=== PATIENT | male | born 1990 | race Caucasian/White ===

== ENCOUNTER 2020-01-08 09:12 | Outpatient (REF) | payer OTHER, SELFPAY ==
[2020-01-08 11:25] LABS: Alanine Aminotransferase 48 U/L (0-40); Albumin Level 4.6 g/dL (3.5-5.0); Alkaline Phosphatase 49 U/L (39-117); Anion Gap 11 (12-20); Aspartate Amino Transferase 25 U/L (5-37); Bilirubin Total 1.5 mg/dL (0.0-1.0); Blood Urea Nitrogen 12 mg/dL (9-16); Calcium 9.4 mg/dL (8.4-10.2); Carbon Dioxide 29 mmol/L (22-29); Chloride 101 mmol/L (96-108); Cholesterol 243 mg/dL; Estimated Glomerular Filt Rate > 60; Glucose Random 97 mg/dL (60-115); HDL Cholesterol 37 mg/dL; Potassium 4.3 mmol/l (3.3-5.1); Sodium 137 mmol/L (135-145); Total Protein 7.1 g/dL (6.5-8.0); Triglycerides 461 mg/dL
[2020-01-08 13:49] LABS: Microalbumin Urine < 5.0 mg/L
== END 2020-01-08 09:13 | disposition home or self-care (01) ==
LOC: HO.WFDLDS 09:12
PROVIDERS: Visit Provider Family Medicine
DX: Z00.00 Encounter for general adult medical examination without abnormal findings (principal); R74.01 Elevation of levels of liver transaminase levels; E78.2 Mixed hyperlipidemia; I10 Essential (primary) hypertension
CPT/HCPCS: 80053; 80061; 82043

== ENCOUNTER 2020-07-22 10:35 | Outpatient (REF) | payer OTHER, SELFPAY ==
[2020-07-22 14:11] LABS: Alanine Aminotransferase 50 U/L (0-40); Albumin Level 4.8 g/dL (3.5-5.0); Alkaline Phosphatase 55 U/L (39-117); Anion Gap 13 (12-20); Aspartate Amino Transferase 25 U/L (5-37); Bilirubin Total 1.6 mg/dL (0.0-1.0); Blood Urea Nitrogen 14 mg/dL (9-16); Calcium 9.8 mg/dL (8.4-10.2); Carbon Dioxide 29 mmol/L (22-29); Chloride 104 mmol/L (96-108); Estimated Glomerular Filt Rate > 60; Glucose Random 84 mg/dL (60-115); Potassium 4.6 mmol/L (3.3-5.1); Sodium 141 mmol/L (135-145); Total Protein 7.5 g/dL (6.5-8.0)
== END 2020-07-22 10:36 | disposition home or self-care (01) ==
LOC: HO.WFDLDS 10:35
PROVIDERS: Visit Provider Family Medicine
DX: I10 Essential (primary) hypertension (principal); R74.01 Elevation of levels of liver transaminase levels
CPT/HCPCS: 36415; 80053

== ENCOUNTER 2020-10-01 09:39 | Outpatient (REF) | payer OTHER, SELFPAY ==
--- NOTE | ~2020-10-01 | XR_ITS ---
EXAMINATION: XR ELBOW, LEFT CLINICAL INFORMATION: Left elbow pain. COMPARISON: None. TECHNIQUE: AP, lateral, and oblique views of the left elbow. FINDINGS: No acute fracture or dislocation. No joint space narrowing or marginal osteophytes. No osseous erosion. No abnormal soft tissue calcification. No significant joint effusion. Prominent soft tissue slight dorsal to the olecranon, which could indicate a soft tissue hematoma in the setting of trauma versus olecranon bursitis. XR/XR elbow LT 2V IMPRESSION: Soft tissue swelling overlying the olecranon, which could represent a soft tissue hematoma in the setting of prior trauma versus olecranon bursitis.
== END 2020-10-01 09:40 | disposition home or self-care (01) ==
LOC: HO.HMGCX 09:39
PROVIDERS: PCP Family Medicine; Visit Provider Family Medicine
DX: M25.522 Pain in left elbow (principal)
CPT/HCPCS: 73070

== ENCOUNTER 2022-03-17 08:27 | Outpatient (REF) | payer OTHER, SELFPAY ==
[2022-03-17 11:49] LABS: Influenza A PCR NEGATIVE (Negative); Influenza B PCR NEGATIVE (Negative); Resp Syncy Virus RNA Qual PCR NEGATIVE (Negative); SARS COV2 PCR INHOUSE NEGATIVE (Negative)
== END 2022-03-17 08:28 | disposition home or self-care (01) ==
LOC: HO.LAB 08:27
PROVIDERS: Visit Provider Family Medicine
DX: Z20.822 Contact with and (suspected) exposure to COVID-19 (principal)
CPT/HCPCS: 0241U

== ENCOUNTER 2022-03-31 08:48 | Outpatient (REF) | payer OTHER, SELFPAY ==
[2022-03-31 11:27] LABS: Appearance Urine Clear; Color Urine Yellow; Glucose Urine UA Negative (Negative); Leukocyte Esterase Urine Negative (Negative); Nitrite Urine Negative (Negative); Urine Blood Negative (Negative); Urine Ketones Negative (Negative); Urine Protein Negative (Neg-Trace)
[2022-03-31 12:15] LABS: Alanine Aminotransferase 72 U/L (0-40); Albumin Level 4.7 g/dL (3.5-5.0); Alkaline Phosphatase 64 U/L (39-117); Anion Gap 11 (12-20); Aspartate Amino Transferase 33 U/L (5-37); Bilirubin Total 1.9 mg/dL (0.0-1.0); Blood Urea Nitrogen 15 mg/dL (9-16); Calcium 9.8 mg/dL (8.4-10.2); Carbon Dioxide 29 mmol/L (22-29); Chloride 103 mmol/L (96-108); Cholesterol 233 mg/dL; Estimated Glomerular Filt Rate > 60; Glucose Fasting 94 mg/dL (60-99); HDL Cholesterol 35 mg/dL; LDL Cholesterol Calculated 140 mg/dl; Potassium 3.8 mmol/L (3.3-5.1); Sodium 139 mmol/L (135-145); Total Protein 7.5 g/dL (6.5-8.0); Triglycerides 291 mg/dL
[2022-03-31 12:23] LABS: TSH reflex Free T4 1.13 uIU/mL (0.32-4.0)
[2022-03-31 12:26] LABS: Creatinine Urine 131.18 mg/dL; Microalbum/Creatinine Ratio Ur 5.3 ug/mg cr
== END 2022-03-31 08:49 | disposition home or self-care (01) ==
LOC: HO.WFDLDS 08:48
PROVIDERS: Visit Provider Family Medicine
DX: Z00.00 Encounter for general adult medical examination without abnormal findings (principal); I10 Essential (primary) hypertension
CPT/HCPCS: 36415; 80053; 80061; 81003; 82043; 84443

== ENCOUNTER 2022-05-06 08:24 | Outpatient (REF) | payer OTHER, SELFPAY | END 2022-05-06 08:25 | disposition home or self-care (01) | LOC: HO.US 08:24 | PROVIDERS: Visit Provider Family Medicine | DX: Z13.89 Encounter for screening for other disorder (principal) ==

== ENCOUNTER 2022-05-09 07:54 | Outpatient (REF) | payer OTHER, SELFPAY ==
--- NOTE | ~2022-05-09 | US_ITS ---
EXAMINATION: US ABDOMEN LIMITED WITH LIVER ELASTOGRAPHY CLINICAL INFORMATION: Elevated transaminase levels. COMPARISON: None. TECHNIQUE: Real-time imaging of the abdominal viscera. Noninvasive ultrasound liver fibrosis assessment is performed using Ambika ElastPQ point quantification shear wave elastography (2D-SWE) with a C5-2 MHz transducer. Multiple elastography samples are obtained. FINDINGS: PANCREAS: Limited. The visualized pancreatic head and body are normal in appearance. The remainder of the pancreas is obscured from visualization by the overlying bowel gas. LIVER: The liver demonstrates normal size, contour and increased echogenicity, with pericholecystic sparing. No focal lesion or intrahepatic biliary duct dilatation. The right lobe measures 16.3 cm in length. The left lobe measures 11.9 cm in length. Portal flow is towards the liver (hepatopetal). Shear wave liver elastography median stiffness is 1.53 m/s (reference: normal median stiffness is 1.3 m/s or less). IQR/median stiffness to assess sampling precision is 0.12 (reference: good quality data set is IQR/median stiffness of 0.15 or less). GALLBLADDER: A 3 mm nonmobile gallbladder polyp is seen. The gallbladder is physiologically distended without evidence of stones, sludge, wall thickening or pericholecystic fluid. COMMON BILE DUCT: Normal in caliber measuring 0.2 cm in diameter. RIGHT KIDNEY: Normal. No hydronephrosis. No renal calculi or focal parenchymal lesions. The kidney measures 11.0 cm in maximum dimension. FREE FLUID: None. US/US abdomen ramos w elastography IMPRESSION: 1. There is generalized increase in hepatic echotexture, consistent with fatty infiltration or hepatocellular disease. Please correlate clinically. Characteristic pericholecystic sparing favors fatty infiltration. No focal hepatic mass or intrahepatic biliary dilatation is seen. 2. Liver elastography: In the absence of other known clinical signs, measurements rule out compensated advanced chronic liver disease. If there are known clinical signs, further testing may be needed for confirmation. 3. A 3 mm nonmobile gallbladder polyp is seen. REFERENCE: Society of Radiologists in Ultrasound Liver Stiffness Thresholds (2020): LIVER STIFFNESS THRESHOLDS: *Liver Stiffness equal or less than 1.3 m/s: High probability of being normal. *Liver Stiffness less than 1.7 m/s: In the absence of other known clinical signs, rules out compensated advanced chronic liver disease. *Liver Stiffness 1.7-2.1 m/s: Suggestive of compensated advanced chronic liver disease but need further test for confirmation. *Liver Stiffness over 2.1 m/s: Rules in compensated advanced chronic liver disease. *Liver Stiffness over 2.4 m/s: Suggestive of clinically significant portal hypertension. QUALITY OF DATA SET: *IQR/Median value equal or less than 0.15 implies a quality data set. *IQR/Median value over 0.15 implies a poor quality data set. SIGNIFICANT CHANGE FROM PRIOR EXAM: Significant change if liver stiffness measurement is 10% or greater from prior exam. OTHER CONSIDERATIONS: The stage of liver fibrosis may be overestimated in the setting of acute hepatitis, liver inflammation, elevated liver function tests, hepatic vascular congestion, obstructive cholestasis, non-fasting state, and infiltrative diseases such as amyloidosis and lymphoma. In some patients with NAFLD, the liver stiffness thresholds for compensated advanced chronic liver disease may be lower. In causes other than viral hepatitis and NAFLD, liver stiffness thresholds are not well established.
== END 2022-05-09 07:55 | disposition home or self-care (01) ==
LOC: HO.US 07:54
PROVIDERS: PCP Family Medicine; Visit Provider Family Medicine
DX: R74.01 Elevation of levels of liver transaminase levels (principal)
CPT/HCPCS: 76705; 76981

== ENCOUNTER 2022-05-20 09:00 | Outpatient (RCR) | payer OTHER, SELFPAY ==
--- NOTE | 2022-04-13 14:01 | MHC.PT.EP ---
[facility] Office [place] Office [place] Office [address] [place] [address] Dr Adrian Pulido [address] [phone] F: [phone] F: [phone] F: [phone] F: [phone] Physical Therapy Plan of Care Date of Evaluation: Date of Surgery: NA Diagnosis: LOW BACK PAIN Assessment: Pt IS 31 YO M REFERRED TO PT FROM DR REDMAN WITH LOW BACK PAIN. Pt REPORTS BACK PAIN STARTED AROUND THANKSGIVING TIME.. MAYBE PLAYING WITH MY SON (2 YO)..I JUST WOKE UP ONE MORNING AND IT WAS THERE SAW DR REDMAN ABOUT 3 WKS AFTER ONSET, TRIED PAIN MED AND MM RELAXER WITHOUT SIGNIF RELIEF, OVER TIME HAS GOTTEN A LITTLE BETTER, BUT STILL STIFF IN THE MORNING PRESENTS WITH SIGNIFICANTLY TIGHT HS MMS, HIP FLEXORS AND HIP ROTATORS, TIGHT THORACIC AND LUMBAR PARASPINALS (R TIGHER THAN L). PRESENTS WITH POOR SIT POSTURE, REPORT OF POOR BODY MECH (HAS 2 YO SON). SHOULD BENEFIT FROM PT TO ADDRESS THESE ISSUES WITH LE STRETCHING PROGRAM, ST WORK, BODY MECH TRNG, LE/CORE STRENGTHENING Frequency and Duration: The patient will be seen 1-2X/WK X 4 WKS Short Term Goals: 1. I HEP WITH DC EX PLAN 2. INCREASED AWARENESS POSTURE AND BACK CARE 3. Pt TO PERF 2-3 TASKS WITH PROPER BODY MECHANICS [facility] Goals: 1 INCREASED HS FLEXIBILITY AT LEAST 10 DEGREES B 2. DECREASED BACK PAIN AT LEAST 50% WITH ADLS 3. IMPROVED MOD OSWESTRY Treatment Plan: Modalities to reduce pain, spasms and effusion. Manual therapy to restore motion and function. Therapeutic exercise to improve strength and flexibility. Neuromuscular re-education for posture and balance. Therapeutic activities to return to functional activities of daily living. Electronically signed by: JIMENA VALENCIA PT Please sign and return to therapist. Thank you for your referral.
--- NOTE | 2022-08-24 13:25 | MHC.PT.DC ---
[facility] [place] Office [place] Office [place] Office [address] Adrian Pulido [address] [phone] F: [phone] F: [phone] F: [phone] F: [phone] Physical Therapy Discharge Report Diagnosis: LOW BACK PAIN Date of Surgery: NA Date of Evaluation: 04/13/22 Date of Discharge: 08/24/22 Treatments to Date: 6 Cancellations to Date: No Shows to Date: 3 Discharge Status: Recommend MD Follow-up Discharge Summary: Pt LAST SEEN ON 05/20/22 BY CHALO ZHAO PT, DPT. PER HER ASSESSMENT NOTE: Pt reinjured himself lifting up tires out of a truck earlier in the week. We reviewed body mechanics and lifting techniques with (+) carryover to reduce further injury or strain. He expresses sx rated 6/10 in lumbar region, denies sciatica sx. He was encouraged to continue his flexibility program and core stabilization program as tolerated. Some relief verbalized with tens/MHP. Erythema response noted with IASTM. Pt THEN NO SHOWED HIS NEXT 3 SCHEDULED PT SESSIONS Initiated progression to [facility] for core/hip stabilization, pt challenged with hip hinge and loses his balance posteriorly. (+) valgus collapse L knee will benefit from ongoing hip abd strengthening in conjunction with core stab program. ERythema response noted with IASTM. Pt expressing positive response overall since starting therapy. Mild soreness across lumbar reported at end of session. Electronically signed by: JIMENA VALENCIA PT Please sign and return to therapist. Thank you for your referral.
--- NOTE | 2022-08-24 13:31 | MHC.PT.DC ---
[facility] [place] Office [place] Office [place] Office [address] Adrian Pulido [address] [phone] F: [phone] F: [phone] F: [phone] F: [phone] Physical Therapy Discharge Report Diagnosis: LOW BACK PAIN Date of Surgery: NA Date of Evaluation: 04/13/22 Date of Discharge: 08/24/22 Treatments to Date: 6 Cancellations to Date: No Shows to Date: 3 Discharge Status: Recommend MD Follow-up Discharge Summary: Pt LAST SEEN ON 05/20/22 BY CHALO ZHAO PT, DPT. PER HER ASSESSMENT NOTE: Pt reinjured himself lifting up tires out of a truck earlier in the week. We reviewed body mechanics and lifting techniques with (+) carryover to reduce further injury or strain. He expresses sx rated 6/10 in lumbar region, denies sciatica sx. He was encouraged to continue his flexibility program and core stabilization program as tolerated. Some relief verbalized with tens/MHP. Erythema response noted with IASTM. Pt THEN NO SHOWED HIS NEXT 3 SCHEDULED PT SESSIONS Initiated progression to [facility] for core/hip stabilization, pt challenged with hip hinge and loses his balance posteriorly. (+) valgus collapse L knee will benefit from ongoing hip abd strengthening in conjunction with core stab program. ERythema response noted with IASTM. Pt expressing positive response overall since starting therapy. Mild soreness across lumbar reported at end of session. Electronically signed by: JIMENA VALENCIA PT Please sign and return to therapist. Thank you for your referral.
== END 2022-08-24 13:34 | disposition home or self-care (01) ==
LOC: HO.PTWFD 09:00
PROVIDERS: Visit Provider Family Medicine
DX: M54.50 Low back pain, unspecified (principal)
CPT/HCPCS: 97014; 97110; 97140; 97161; 97535

== ENCOUNTER 2023-01-05 11:53 | Outpatient (AMB) | payer OTHER, SELFPAY ==
--- NOTE | 2023-01-05 12:25 | MHC.OFFWIV ---
Intake Vital Signs 01/05/23 12:26 Height 6 ft 2 in Weight 88.451 kg BMI 25.0 BP 140/92 H Blood Pressure Location Rt brachial Position Sitting Pulse 96 Pulse Source Pulse Oximeter Temp 97.6 F Temp Source Temporal Artery Scan Pulse Oximetry (%) 96 Oxygen Delivery Method Room Air Intake Visit Reasons: EP, congestion [phone] Intake Note: Pt is here c/o nose congestion for the past 2 weeks. Patient Tobacco Use Status: Never used Tobacco Allergies penicillin G Allergy (Unknown, Verified 01/05/23 12:25) Rash, Swelling Do you need a note to return to daycare/school/sports/work: No HPI HPI Comments History of Present Illness Details 1247 32-year-old male history of hypertension presenting to the clinic for evaluation of sinus pressure and congestion for the past 2 weeks not improving. Patient tells me his forehead feels like there is a constant pressure behind it and also feels like there is pressure behind his eyes. He tells me he is very nasally and congested. No sick contacts. Denies fevers, chills, chest pain, shortness of breath, vision changes, dizziness, weakness, sore throat, ear pain. Physical exam with discomfort with palpation of facial sinuses and pressure to face with forward bending. Based off length of time concerns for bacterial sinusitis. Unlikely viral illness, PE, pneumonia, intracranial hemorrhage, stroke. No signs of meningitis or encephalitis plan at this time will treat with doxycycline as patient has a penicillin allergy will also give prednisone. Educated patient on diagnosis and treatment plan, answered all question, patient verbalizes understanding. At this time patient will be discharged home, advised to return with new or worsening symptoms. Educated on worrisome signs and symptoms and when to return. At this time I feel comfortable discharge home. [facility] Medical History Hypertension Social History Housing: House Patient Tobacco Use Status: Never used Tobacco e-Cigarette/Vaping Use: Never Used Second Hand Smoke Exposure: No service: No Current occupational status: employed Current occupational exposures/hazards: No Cognitive needs: No Hearing needs: No Vision needs: No Review of Systems Const Details: Constitutional : No Weight loss, No Fever, No Chills, No Fatigue, No Malaise ENT/Mouth : No sore throat, No Rhinorrhea, + sinus pressure Eyes: No Eye Pain, No Swelling, No Redness Cardiovascular : No Chest Pain, No SOB, No Dyspnea on Exertion, No Orthopnea, No Edema, No Palpitations Respiratory : No Cough, No Sputum, No Wheezing Gastrointestinal : No Nausea, No Vomiting, No Diarrhea, No Constipation, No abdominal Pain, No Hematochezia, No Melena Genitourinary : No Dysuria, No Urinary Frequency, No Hematuria, Musculoskeletal : No joint pain, No Myalgias, No Joint Swelling Skin : No Skin Lesions, No rash Neuro : No Weakness, No Numbness, No Dizziness, No Headache Psych : No Anxiety/Panic, No Depression All other systems reviewed and are negative All systems reviewed & are unremarkable except as noted in HPI and below Physical Exam Vital Signs: Last Vital Signs Temp 97.6 F 01/05/23 12:26 Pulse 96 01/05/23 12:26 BP 140/92 H 01/05/23 12:26 Pulse Ox 96 01/05/23 12:26 Oxygen Delivery Method Room Air 01/05/23 12:26 BMI result Body Mass Index 25.0 vss Appearance: Alert.? Oriented X3.? No acute distress.? Head: Normocephalic, atraumatic, no step-offs or deformities. discomfort with palpation of facial sinuses and pressure to face with forward bending. Eyes: Pupils equal, round and reactive to light.? ENT: Pharynx normal.? Neck: Normal inspection.? Neck supple.? CVS: Normal heart rate and rhythm.? Pulses normal.? Respiratory: No respiratory distress.? Breath sounds normal.? Abdomen: Soft and nontender.? Skin: Skin warm and dry.? Normal skin color.? Normal skin turgor.? Extremities: No lower extremity edema.? No calf ttp. 5/5 strength to bilateral upper and lower extremities Neuro: Oriented X 3.? No motor deficit.? No sensory deficit. CN 2-12 intact Assessment & Plan Assessment & Plan (1) Sinusitis: Code(s): J32.9 - Chronic sinusitis, unspecified Plan Take your medications as prescribed. If you were prescribed antibiotics today, it is important that you take your medication to their entirety, do not skip any doses, do not finish them early. Follow-up with your primary care provider this week. Return to the emergency department with new or worsening symptoms. Such as fevers, chills, chest pain, shortness of breath, nausea, vomiting, dizziness, headache, vision changes, lethargy In case of emergency call 911 Orders: Orders PastoraxWAQAR Covid-19 Ag Today J32.9 - Chronic sinusitis, unspecified Medications: New prednisone 40 mg (2 x 20 mg) PO DAILY 5 days 10 tabs 0RF doxycycline hyclate 100 mg PO BID 7 days 14 caps 0RF Coding Level of Care Code Est Pt Level 3 (88283) Diagnoses Sinusitis J32.9
[2023-01-05 12:26] VITALS: BP 140/92; PULSE 96; TEMP 36.4; O2SAT 96; BMI 25.0
== END 2023-01-05 13:00 | disposition home or self-care (01) ==
PROVIDERS: PCP Family Medicine; Visit Provider Physician Assistant
DX: J32.9 Chronic sinusitis, unspecified (principal)
CPT/HCPCS: 99213

== ENCOUNTER 2023-12-27 08:35 | Outpatient (AMB) | payer OTHER, SELFPAY ==
--- NOTE | 2023-12-27 09:11 | MHC.OFFWIV ---
Intake Vital Signs 12/27/23 09:14 Height 6 ft 2 in Weight 199 lb BMI 25.5 BP 124/72 Blood Pressure Location Lt brachial Position Sitting Respiration 14 Pulse 66 Pulse Source Pulse Oximeter Temp 98.1 F Temp Source Oral Pulse Oximetry (%) 99 Oxygen Delivery Method Room Air Intake Visit Reasons: possible walking ammonia Intake Note: Patient is complaining and coughing up green mucus. Patient son has walking pneumonia. Patient Tobacco Use Status: Never used Tobacco Allergies penicillin G Allergy (Unknown, Verified 12/27/23 09:40) Rash, Swelling Medication List - Last Reconciled 12/27/23 by Aileen Anguiano, [facility]- lisinopril 5 mg PO DAILY 90 days omeprazole 20 mg PO QAM 90 days Do you need a note to return to daycare/school/sports/work: No HPI HPI Comments History of Present Illness Details 33-year-old male here today with chief complaints of a cough. Reports that this started about 2-3 weeks ago after being exposed to his son who was diagnosed with walking pneumonia. She reports that the cough is productive, he has a sore throat from the cough and headaches that occur at night. Has been using Advil to treat his headaches. Otherwise he does report some improvement in his cough however he feels short of breath when exercising. He denies any fever, chills, ear pain, chest pain, asthma history or tobacco use. Exam: Awake alert NAD Sclera and conjunctiva clear bilat Nares patent, turbinates within normal limits, no sinus tenderness with palpation bilat TM intact, congested on R, mild injection on L MMM, pharynx WNL RRR LS faint expiratory wheeze in the right upper lobe otherwise clear throughout, hacking cough noted during exam without respiratory distress Plan Given the fact that he has had a cough for several weeks and continues to have a cough associated with some wheezing, offered a chest x-ray. He declined at this time. We will treat him with doxycycline as he was taking this in the past and tolerated it quite well. We will also give him Tessalon for cough as well as albuterol. Advised to use the albuterol 3 times per day for the next week and then as needed. Educated that a cough can last for up to 6 weeks after an illness, however if his symptoms do not improve or worsen advised he needs to seek follow up care. Total time spent caring for the patient today was 30 minutes. This includes time spent before the visit reviewing the chart, time spent during the visit, and time spent after the visit on documentation This note is constructed using voice recognition software. While every effort has been made to ensure accuracy in infant nanny, still errors may have been included Sometimes, these errors may affect the content or meaning of the given sentence . PFSH Medical History Hypertension Social History Housing: House Patient Tobacco Use Status: Never used Tobacco e-Cigarette/Vaping Use: Never Used Second Hand Smoke Exposure: No service: No Current occupational status: employed Current occupational exposures/hazards: No Cognitive needs: No Hearing needs: No Vision needs: No Physical Exam Vital Signs: Last Vital Signs Temp 98.1 F 12/27/23 09:14 Pulse 66 12/27/23 09:14 Resp 14 12/27/23 09:14 BP 124/72 12/27/23 09:14 Pulse Ox 99 12/27/23 09:14 Oxygen Delivery Method Room Air 12/27/23 09:14 BMI result Body Mass Index 25.5 Assessment & Plan Assessment & Plan (1) Cough: Code(s): R05.9 - Cough, unspecified Qualifiers: Cough type: acute Qualified Code(s): R05.1 - Acute cough Plan: . (2) Wheezing on auscultation: Code(s): R06.2 - Wheezing Plan: . (3) Exposure to pneumonia: Code(s): Z20.89 - Contact with and (suspected) exposure to other communicable diseases Plan: . Medications: New doxycycline hyclate 100 mg PO BID 14 caps 0RF 7 days benzonatate 100 mg PO TID PRN 30 caps 1RF cough 10 days albuterol sulfate 90 mcg/actuation 2 puffs inhalation Q4-6H PRN 8.5 grams 0RF shortness of breath or wheezing 30 days Coding Level of Care Code Est Pt Level 4 (82249) Diagnoses Acute cough R05.1 Cough type: acute Wheezing on auscultation R06.2 Exposure to pneumonia Z20.89
[2023-12-27 09:14] VITALS: BP 124/72; PULSE 66; RESP 14; TEMP 36.7; O2SAT 99; BMI 25.5
== END 2023-12-27 09:46 | disposition home or self-care (01) ==
PROVIDERS: PCP Family Medicine; Visit Provider Nurse Practitioner Family
DX: R05.1 Acute cough (principal); R06.2 Wheezing; Z20.89 Contact with and (suspected) exposure to other communicable diseases

== ENCOUNTER → 2023-12-27 08:35 | Outpatient (BNVA) | payer OTHER, SELFPAY | PROVIDERS: PCP Family Medicine ==

== ENCOUNTER 2024-02-01 15:47 | Outpatient (AMB) | payer OTHER, SELFPAY ==
--- NOTE | 2024-02-01 16:33 | MHC.PC.OV ---
Vital Signs 02/01/24 16:35 Height 6 ft 2 in Weight 195 lb BMI 25.0 BP 147/97 H Blood Pressure Location Rt brachial Position Sitting Respiration 16 Pulse 78 Pulse Source Pulse Oximeter Temp 98.8 F Temp Source Temporal Artery Scan Pulse Oximetry (%) 97 Oxygen Delivery Method Room Air Intake Visit Reasons: PE Intake Note: pe Allergies penicillin G Allergy (Unknown, Verified 02/01/24 16:34) Rash, Swelling Tobacco use date assessed: 04/11/22 HPI PE HPI Details 33 y/o male presents for a CPE with f/u labs and health maintenance. BP today 147/97, 78p. He is on lisinopril 5mg daily. No recent labs to review. Notes an ongoing cough but much improved. Reports ongoing GERD. He is on omeprazole 20mg. COUNT INCLUDES THE [facility] Medical History Hypertension Social History Housing: House Patient Tobacco Use Status: Never used Tobacco e-Cigarette/Vaping Use: Never Used Second Hand Smoke Exposure: No service: No Current occupational status: employed Current occupational exposures/hazards: No Cognitive needs: No Hearing needs: No Vision needs: No Questionnaire PHQ-9 Over the last 2 weeks, how often have you been bothered by any of the following problems? 1. Little interest or pleasure in doing things: not at all 2. Feeling down, depressed, or hopeless: not at all 3. Trouble falling or staying asleep, or sleeping too much: not at all 4. Feeling tired or having little energy: not at all 5. Poor appetite or overeating: not at all 6. Feeling bad about yourself - or that you are a failure or have let yourself or your family down: not at all 7. Trouble concentrating on things, such as reading the newspaper or watching television: not at all 8. Moving or speaking so slowly that other people could have noticed. Or the opposite - being so fidgety or restless that you have been moving around a lot more than usual: not at all 9. Thoughts that you would be better off or of hurting yourself in some way: not at all Total score: 0 Depression Screening Interpretation: Negative Depression Screening Done: Yes 01877 - PHQ-9 Billing: Yes Source: Developed by Drs. Erick Castro, Romana Manning, Ray Mendez and colleagues, with an educational kiera from [employer]. Thrive Questionnaire Date Thrive assessed: 02/01/24 I am a: Patient What is your living situation today?: I have a steady place to live Within the past 12 months, did the food you bought not last and you didn't have the money to get more?: Never true Within the past 12 months, did you worry whether your food would run out before you got money to buy more?: Never true Do you have trouble paying for medicines?: No Do you have trouble getting transportation to medical appointments?: No Do you have trouble paying your heating and electricity bill?: No Do you have trouble taking care of your child, family member or friend?: No Do you have trouble with day-to-day activities such as bathing, preparing meals, shopping, managing finances, etc.?: No Are you currently unemployed and looking for a job?: No Are you interested in more education?: No Please select the resources that you would like help with: None Currently or been in a relationship where the following occur: I choose not to answer THRIVE Score: 0 AUDIT C Alcohol Use Questionnaire (AUDIT-C) 1. How often do you have a drink containing alcohol?: 2-4 times a month 2. How many drinks containing alcohol do you have on a typical day when you are drinking?: 3 or 4 3. How often do you have six or more drinks on one occasion?: Less than monthly Total Score: 4 NELLIE-7 AMB Questionnaire NELLIE-7 Date NELLIE - 7 assessed: 02/01/24 Feeling nervous, anxious, or on edge: 0 = Not at all Not being able to stop or control worryin = Several days Worrying too much about different things: 1 = Several days Trouble relaxin = Several days Being so restless that it is hard to sit still: 0 = Not at all Becoming easily annoyed or irritable: 1 = Several days Feeling afraid as if something awful might happen: 0 = Not at all Total NELLIE-7 score (0-4 normal; 5-9 mild; 10-14 moderate; 15-21 severe): 4 Source: Developed by Drs. Erick Castro, Romana Manning, Ray Mendez and colleagues, with an educational kiera from [employer]. NELLIE-7 Assessment Billing NELLIE-7 Assessment Tool: NELLIE-7 Assessment 00220 Review of Systems Const Denies chills, Denies fatigue, Denies fever(s), Denies headache(s) and Denies weakness Eyes Denies change in vision ENT Denies dizziness, Denies headache(s), Denies hearing loss, Denies nasal congestion, Denies sinus pain, Denies sinus pressure and Denies sore throat Card Denies chest pain, Denies lightheadedness, Denies dyspnea and Denies other (palpitations) Resp Denies cough, Denies dyspnea and Denies wheezing GI Denies abdominal pain, Denies melena, Denies hematochezia, Denies change in bowel habits, Denies dyspepsia and Denies nausea Denies hematuria and Denies dysuria Musc Denies abnormal gait, Denies myalgias, Denies arthralgias, Denies numbness and Denies tingling Skin/Breast Denies rash, Denies unusual bruising and Denies wounds Neuro Denies abnormal gait, Denies dizziness, Denies headache(s), Denies memory loss, Denies numbness, Denies Sensory deficit (Neuro), Denies tingling and Denies weakness Psych Denies anxiety, Denies depression and Denies memory loss Endo Denies cold intolerance, Denies fatigue, Denies heat intolerance, Denies polydipsia and Denies polyuria Anjel/Lymph Denies easy bleeding and Denies easy bruising Aller/Immun Denies wheezing Physical exam (Primary Care) Vital Signs: Last Vital Signs Temp 98.8 F 02/01/24 16:35 Pulse 78 02/01/24 16:35 Resp 16 02/01/24 16:35 BP 147/97 H 02/01/24 16:35 Pulse Ox 97 02/01/24 16:35 Oxygen Delivery Method Room Air 02/01/24 16:35 BMI result Body Mass Index 25.0 Tobacco/Smoking Status: Tobacco use Status Tobacco use date assessed 04/11/22 02/01/24 16:39 Patient Tobacco Use Status Never used Tobacco 02/01/24 16:39 e-Cigarette/Vaping Use Never Used 02/01/24 16:39 PHQ-9: PHQ-9 Score PHQ-9: Total score 0 02/01/24 17:10 Depression Screening Interpretation: Negative Thrive Assessment: Date of Thrive Assessment Date Thrive assessed 02/01/24 02/01/24 16:39 Currently or been in a relationship where the following occur: I choose not to answer Const General: no acute distress, well developed, alert and awake Nutritional Appearance: well nourished Orientation/consciousness: patient oriented x3 HENMT Head: Yes normocephalic and Yes atraumatic Ears: hearing grossly normal bilaterally and TM's normal bilaterally General nose exam: Normal external nose present and Normal nares present Mouth: Normal oral and palatal mucosa present and moist mucous membranes Teeth and gingiva: dentition normal Throat: Yes posterior oropharynx normal Eyes General: appearance normal, both eyes and all related structures Pupils: Equal, round and reactive pupils present and Pupil accommodation reflex normal EOM: EOMs intact bilaterally Neck Neck: Yes normal visual inspection, Yes no lymphadenopathy and Yes trachea midline Thyroid: Thyroid normal Carotids: no bruits Lymphatic: no lymphadenopathy noted Chest Chest palpation & inspection: normal inspection of the chest Resp Other: Coarse breath sounds but otherwise clear Effort & Inspection: normal respiratory effort Auscultation: clear to auscultation bilaterally Cardio Rate: regular rate Rhythm: regular rhythm Heart sounds: S1 normal heart sound present, S2 normal heart sound present, no gallops, no murmurs and no rubs Bruits: no abdominal aortic bruits and no carotid bruits GI Palpation (GI): No Abdominal aortic bruit present, Soft to palpation, nontender, No hepatosplenomegaly present and No Rebound tenderness present Auscultation: normal bowel sounds General: Yes no CVA tenderness Back/Spine/Pelvis Back: no CVA tenderness Cervical Spine: cervical ROM normal and No Cervical spine tenderness Thoracic/Lumbar Spine: thoraco-lumbar ROM normal, No pain with thoraco-lumbar ROM, No thoracic spinal tenderness and No lumbar spinal tenderness Skin Lesions: no lesions Rashes: no rashes Trauma: no lacerations or abrasions Wounds: no wounds Nails: normal Neuro General: patient oriented x3 Cranial nerves: Yes Equal, round and reactive pupils present Cognition (Neuro): normal cognition Gait exam (Neuro): Normal gait present Motor exam (neuro): 5/5 motor strength present throughout Sensory Exam: No Sensory deficit (Neuro) Deep tendon reflexes (DTR's): Right patellar reflex intensity grade: 2+ and Left patellar reflex intensity grade: 2+ Extrem General: Yes normal to inspection and No edema Psych Appearance: grossly normal Affect: normal affect Attitude: cooperative Thought process: Normal thought process present Coding Level of Care Code Est Pt Level 3 (27035) Est Pt Prev Care 18-39y(18741) Diagnoses Annual physical exam Z00.00 Essential hypertension I10 Cough R05.9 GERD (gastroesophageal reflux disease) K21.9 Immunization counseling Z71.85 Additional Codes NELLIE-7 Assessment Billing - NELLIE-7 Assessment Tool: NELLIE-7 Assessment 43328 ([id number]) PHQ-9 - 68567 - PHQ-9 Billing: Yes ([id number]) Assessment & Plan Assessment & Plan (1) Annual physical exam: Code(s): Z00.00 - Encounter for general adult medical examination without abnormal findings Category: Medical Plan: 33-year-old?male?presents?for?complete?physical?exam Encouraged?a?healthy?diet?with?active?lifestyle?and?plenty?of?exercise (2) Essential hypertension: Code(s): I10 - Essential (primary) hypertension Category: Medical Plan: Blood?pressure?is?high?and?he?notes?that?it?is?elevated?or?high?at?home?when?sitting?at?rest Increase?lisinopril?to?10?mg?daily Will?have?him?return?to?recheck?this?in?a?month (3) Cough: Code(s): R05.9 - Cough, unspecified Category: Medical Plan: Recent?productive?cough?due?to?likely?viral?illness Mildly?coarse?breath?sounds?but?cough?is?improving Should?continue?to?improve?and?resolve?spontaneously (4) GERD (gastroesophageal reflux disease): Code(s): K21.9 - Gastro-esophageal reflux disease without esophagitis Category: Medical Plan: Patient?has?symptoms?almost?every?day?despite?using?Prilosec He?says?he?has?seen?gastroenterology?in?the?past?for?this Will?refer?him?back?to?GI Continue?Prilosec Avoid Trigger Foods (5) Immunization counseling: Code(s): Z71.85 - Encounter for immunization safety counseling Category: Medical Plan: Patient?had?a?Tdap?4?years?ago?and?is?wondering?if?he?needs?another He?is?having?a?new?baby?in?June No?guidelines?that?he?needs?a?new?Tdap?or?pertussis?vaccine?for?this. His?Tdap?and?pertussis?are?up-to-date Orders: Orders Comprehensive Sylvia. Panel Fast Today Z00.00 - Encounter for general adult medical examination without abnormal findings Complete Blood Count Auto Diff Today Z00.00 - Encounter for general adult medical examination without abnormal findings Lipid Panel Today Z00.00 - Encounter for general adult medical examination without abnormal findings Microalbumin, Random (w Creat) Today I10 - Essential (primary) hypertension UA and rflx microscopic Today Z00.00 - Encounter for general adult medical examination without abnormal findings Prostate Specific Antigen Scr Today Z12.5 - Encounter for screening for malignant neoplasm of prostate TSH reflex Free T4 Today Z00.00 - Encounter for general adult medical examination without abnormal findings Referrals Gastroenterology Referral K21.9 - Gastro-esophageal reflux disease without esophagitis Medications: Changed From lisinopril 5 mg PO DAILY 90 days 90 tabs 0RF I10 - Essential (primary) hypertension To lisinopril 10 mg PO DAILY 90 days 90 tabs 3RF I10 - Essential (primary) hypertension
[2024-02-01 16:35] VITALS: BP 147/97; PULSE 78; RESP 16; TEMP 37.1; O2SAT 97; BMI 25.0
== END 2024-02-01 17:05 | disposition home or self-care (01) ==
PROVIDERS: PCP Family Medicine; Visit Provider Family Medicine
DX: Z00.00 Encounter for general adult medical examination without abnormal findings (principal); I10 Essential (primary) hypertension; R05.9 Cough, unspecified; K21.9 Gastro-esophageal reflux disease without esophagitis; Z71.85 Encounter for immunization safety counseling

== ENCOUNTER → 2024-02-01 15:47 | Outpatient (BNVA) | payer OTHER, SELFPAY | PROVIDERS: PCP Family Medicine; Visit Provider Family Medicine | DX: Z00.00 Encounter for general adult medical examination without abnormal findings (principal); I10 Essential (primary) hypertension; R05.9 Cough, unspecified; K21.9 Gastro-esophageal reflux disease without esophagitis; Z79.899 Other long term (current) drug therapy; Z71.85 Encounter for immunization safety counseling | CPT/HCPCS: 96127 ==

== ENCOUNTER 2024-02-17 09:34 | Outpatient (AMB) | payer OTHER, SELFPAY ==
[2024-02-17 09:47] VITALS: BP 118/70; PULSE 94; TEMP 36.8; O2SAT 99; BMI 25.0
--- NOTE | 2024-02-17 09:47 | MHC.OFFWIV ---
Intake Vital Signs 02/17/24 09:47 Height 6 ft 2 in Weight 195 lb BMI 25.0 BP 118/70 Blood Pressure Location Rt brachial Position Sitting Pulse 94 Pulse Source Pulse Oximeter Temp 98.3 F Temp Source Oral Pulse Oximetry (%) 99 Oxygen Delivery Method Room Air Intake Visit Reasons: EP Swollen eyelid, painful Intake Note: Pt is here today c/o Lt eyelid red and swollen painful x3days Patient Tobacco Use Status: Never used Tobacco Allergies penicillin G Allergy (Unknown, Verified 03/05/24 09:48) Rash, Swelling HPI EP Swollen eyelid, painful HPI Details Patient is a 33-year-old male comes to the walk-in clinic complaining of left lower eyelid red, swollen and uncomfortable for the last 3 days. His son has had pinkeye in the past, but no report of recent known infection. Has a history of TM tubes placed as a trialed which cause scarring as they were not taken out in time. Otherwise, he has no current respiratory issues, and denies discharge. He does have some slight intermittent blurriness to the left eye, however no crusting upon waking was reported. [facility] Medical History Hypertension Social History Housing: House Patient Tobacco Use Status: Never used Tobacco e-Cigarette/Vaping Use: Never Used Second Hand Smoke Exposure: No service: No Current occupational status: employed Current occupational exposures/hazards: No Cognitive needs: No Hearing needs: No Vision needs: No Review of Systems Const All systems reviewed & are unremarkable except as noted in HPI and below Physical Exam Vital Signs: Last Vital Signs Temp 98.3 F 02/17/24 09:47 Pulse 94 02/17/24 09:47 BP 118/70 02/17/24 09:47 Pulse Ox 99 02/17/24 09:47 Oxygen Delivery Method Room Air 02/17/24 09:47 BMI result Body Mass Index 25.0 Const Other: Left lower eyelid is erythematous and edematous. No palpable mass or visible stye noted. 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 Otherwise his nose and mouth are unremarkable. He has no systemic symptoms of infection. No discharge or watering, or scleral injection noted. Assessment & Plan Assessment & Plan (1) Conjunctivitis: Code(s): H10.9 - Unspecified conjunctivitis Qualifiers: Conjunctivitis type: acute Acute conjunctivitis type: bacterial Laterality: left Qualified Code(s): H10.32 - Unspecified acute conjunctivitis, left eye Plan: Left lower eyelid is edematous and erythematous, apparent acute conjunctivitis, likely viral. No palpable or visible mass or stye noted. I will write him for an antibiotic drop today, and advised that he use warm wet compresses frequently to keep lower eyelash line free of discharge and massage the left lower eyelid a few times a day. Hopefully this will dislodged a potential obstruction that might be a stye developing. He knows to follow up if it worsens. Plan Pt is here today c/o Lt eyelid red and swollen painful x3days Medications: New polymyxin B sulf-trimethoprim 10,000 unit- 1 mg/mL while awake; do not exceed 6 doses in 24 hours 1 drp ophthalmic (eye) QID 10 mL 0RF 5 days Coding Level of Care Code Est Pt Level 3 (43139) Diagnoses Acute bacterial conjunctivitis of left eye H10.32 Conjunctivitis type: acute Acute conjunctivitis type: bacterial Laterality: left
== END 2024-02-17 11:13 | disposition home or self-care (01) ==
PROVIDERS: PCP Family Medicine; Visit Provider Physician Assistant Medical
DX: H10.32 Unspecified acute conjunctivitis, left eye (principal)

== ENCOUNTER 2024-02-28 08:06 | Outpatient (REF) | payer OTHER, SELFPAY ==
[2024-02-28 11:20] LABS: MANUAL DIFF FLAG NO
[2024-02-28 11:25] LABS: Appearance Urine Clear; Color Urine Yellow; Glucose Urine UA Negative (Negative); Leukocyte Esterase Urine Negative (Negative); Nitrite Urine Negative (Negative); PH 7.5 (5.0-9.0); Specific Gravity - Urine 1.015 (1.005-1.025); Urine Blood Negative (Negative); Urine Ketones Negative (Negative); Urine Protein Negative (Neg-Trace)
[2024-02-28 11:26] LABS: Basophils Percent Auto 0.4 % (0-2); Eosinophils Absolute Auto 0.1 X10*3/uL (0.0-0.4); Hematocrit 45.6 % (42.0-52.0); Hemoglobin 15.4 g/dl (14.0-18.0); Imm Gran Abs Auto 0.02 X10*3/uL (0.00-0.03); Imm Gran Pct Auto 0.4 % (0.0-0.4); Lymphocytes Absolute Auto 1.5 X10*3/uL (1.2-4.9); Lymphocytes Percent Auto 32.9 % (20-40); Mean Corpuscular HGB Conc 33.8 g/dl (31.0-36.0); Mean Corpuscular Hemoglobin 28.6 pg (27.0-33.0); Mean Corpuscular Volume 84.6 fL (80.0-98.0); Monocytes Absolute Auto 0.4 X10*3/uL (0.1-1.2); Neutrophils Absolute Auto 2.6 x10*3/uL (2.0-8.3); Neutrophils Percent Auto 55.3 % (45-73); Platelet Count 216 X10*3/uL (160-400); Red Blood Count 5.39 X10*6/uL (4.60-5.80); Red Cell Distribution Width 12.2 % (11.0-16.0); White Blood Count 4.6 X10*3/uL (4.8-10.8)
[2024-02-28 11:41] LABS: Creatinine Urine 116.66 mg/dL; Microalbumin Urine < 5.0 mg/L
[2024-02-28 11:50] LABS: Alanine Aminotransferase 60 U/L (0-40); Albumin Level 4.7 g/dL (3.5-5.0); Alkaline Phosphatase 46 U/L (39-117); Anion Gap 10 (12-20); Aspartate Amino Transferase 34 U/L (5-37); Bilirubin Total 1.4 mg/dL (0.0-1.0); Blood Urea Nitrogen 11 mg/dL (9-16); Calcium 9.9 mg/dL (8.4-10.2); Carbon Dioxide 30 mmol/L (22-29); Chloride 104 mmol/L (96-108); Cholesterol 244 mg/dL (<200); Estimated Glomerular Filt Rate > 60; Glucose Fasting 98 mg/dL (60-99); HDL Cholesterol 40 mg/dL (>40); LDL Cholesterol Calculated 136 mg/dL (<100); Potassium 3.7 mmol/L (3.3-5.1); Sodium 140 mmol/L (135-145); Total Protein 7.7 g/dL (6.5-8.0); Triglycerides 342 mg/dL (<150)
[2024-02-28 12:03] LABS: Prostate Specific Antigen Scr 0.87 ng/mL (<0.05-4.0)
== END 2024-02-28 08:07 | disposition home or self-care (01) ==
LOC: HO.WFDLDS 08:06
PROVIDERS: Visit Provider Family Medicine
DX: Z00.00 Encounter for general adult medical examination without abnormal findings (principal); I10 Essential (primary) hypertension; Z12.5 Encounter for screening for malignant neoplasm of prostate
CPT/HCPCS: 36415; 80053; 80061; 81003; 82570; 84153; 84443; 85025

== ENCOUNTER → 2024-03-05 10:02 | Outpatient (AMB) | payer OTHER, SELFPAY ==
--- NOTE | 2024-03-05 09:48 | MHC.PC.OV ---
Intake Visit Reasons: f/u CPE-labs Allergies penicillin G Allergy (Unknown, Verified 03/05/24 09:48) Rash, Swelling Tobacco use date assessed: 04/11/22 HPI f/u CPE-labs HPI Details 33 y/o male presents to f/u labs via telemedicine. Labs drawn 02/28/24. Reviewed labs with pt. Triglycerides 342. TC 244. LDL 136. HDL 40. Ongoing elevated ALT. Had increased lisinopril from 5mg daily to 10mg daily. HPI Comments History of Present Illness Details Documentation assistance for Yfn Barney MD, was provided by Aris Cantrell,? Forest [employer] on 03/05/2024 at 4:19 PM EST. I, Dr. Barney, have read, observed, and verified documentation. [facility] Medical History Hypertension Social History Housing: House Patient Tobacco Use Status: Never used Tobacco e-Cigarette/Vaping Use: Never Used Second Hand Smoke Exposure: No service: No Current occupational status: employed Current occupational exposures/hazards: No Cognitive needs: No Hearing needs: No Vision needs: No Questionnaire Thrive Questionnaire Date Thrive assessed: 02/01/24 I am a: Parent/Caregiver What is your living situation today?: I have a steady place to live Within the past 12 months, did the food you bought not last and you didn't have the money to get more?: Never true Within the past 12 months, did you worry whether your food would run out before you got money to buy more?: Never true Do you have trouble paying for medicines?: No Do you have trouble getting transportation to medical appointments?: No Do you have trouble paying your heating and electricity bill?: No Do you have trouble taking care of your child, family member or friend?: No Do you have trouble with day-to-day activities such as bathing, preparing meals, shopping, managing finances, etc.?: No Are you currently unemployed and looking for a job?: No Are you interested in more education?: No Please select the resources that you would like help with: None Currently or been in a relationship where the following occur: I choose not to answer THRIVE Score: 0 NELLIE-7 AMB Questionnaire NELLIE-7 Date NELLIE - 7 assessed: 02/01/24 Source: Developed by Drs. Erick Castro, Romana Manning, Ray Mendez and colleagues, with an educational kiera from [employer]. Physical exam (Primary Care) Tobacco/Smoking Status: Tobacco use Status Tobacco use date assessed 04/11/22 03/05/24 09:50 Patient Tobacco Use Status Never used Tobacco 03/05/24 09:50 e-Cigarette/Vaping Use Never Used 03/05/24 09:50 Thrive Assessment: Date of Thrive Assessment Date Thrive assessed 02/01/24 03/05/24 09:50 Currently or been in a relationship where the following occur: I choose not to answer Telehealth Telehealth Telehealth Platform: Telephone Location of provider rendering services: practice address Location of patient: address on file Patient Identification confirmed using: Name, : Yes Telehealth method: voice only Patient verbally consented to treatment: Yes Patient verbally consented to billing insurance company: Yes Patient informed of any privacy concerns related to visit: Yes Minutes spent on Phone/Video with Pt.: 13 Coding Level of Care Code Tele Est Pt Level 2 (81203) Diagnoses Essential hypertension I10 Mixed hyperlipidemia E78.2 Elevated ALT measurement R74.01 Assessment & Plan Assessment & Plan (1) Essential hypertension: Code(s): I10 - Essential (primary) hypertension Category: Medical Plan: Patient?notes?that?his?blood?pressure?is?still?elevated?at?home Will?change?lisinopril?10?mg?daily?to?lisinopril-hydrochlorothiazide?10/12.5?mg (2) Mixed hyperlipidemia: Code(s): E78.2 - Mixed hyperlipidemia Category: Medical Plan: Triglycerides?and?LDL?cholesterol?are?still?too?high Start?rosuvastatin He?will?work?on?diet?low?in?saturated?fats?and?cholesterol Encouraged?small?amount?of?weight?loss He?will?get?his?labs?redrawn?prior?to?next?visit?to?review (3) Elevated ALT measurement: Code(s): R74.01 - Elevation of levels of liver transaminase levels Category: Medical Plan: ALT?remains?elevated?though?it?has?decreased?from?prior?check Liver?ultrasound?last?year?showed?fatty?liver?disorder?and?also?mildly?elevated?elastography?though?no?evidence?advanced?compensated?liver?disorder Encouraged?weight?loss Will?continue?to?monitor Avoid?alcohol?and?Tylenol?and?hydrate?well Orders: Orders Lipid Panel Today E78.2 - Mixed hyperlipidemia, Z00.00 - Encounter for general adult medical examination without abnormal findings Comprehensive Spencer. Panel Fast Today E78.2 - Mixed hyperlipidemia, Z00.00 - Encounter for general adult medical examination without abnormal findings Medications: New rosuvastatin 20 mg PO DAILY 30 tabs 3RF 30 days lisinopril-hydrochlorothiazide 10-12.5 mg 1 tab PO DAILY 90 tabs 3RF 90 days Discontinued lisinopril Discontinued Reason: Doctor's Order 10 mg PO DAILY 90 days 90 tabs 3RF I10 - Essential (primary) hypertension
== END ==
LOC: HO.HMCFM 10:02
PROVIDERS: PCP Family Medicine; Visit Provider Family Medicine
DX: I10 Essential (primary) hypertension (principal); E78.2 Mixed hyperlipidemia; R74.01 Elevation of levels of liver transaminase levels

== ENCOUNTER 2024-06-06 11:14 | Outpatient (REF) | payer OTHER, SELFPAY ==
[2024-06-06 15:03] LABS: Alanine Aminotransferase 60 U/L (0-40); Albumin Level 4.8 g/dL (3.5-5.0); Alkaline Phosphatase 42 U/L (39-117); Anion Gap 13 (12-20); Aspartate Amino Transferase 36 U/L (5-37); Bilirubin Total 2.1 mg/dL (0.0-1.0); Blood Urea Nitrogen 14 mg/dL (9-16); Calcium 9.7 mg/dL (8.4-10.2); Carbon Dioxide 28 mmol/L (22-29); Chloride 103 mmol/L (96-108); Cholesterol 171 mg/dL (<200); Estimated Glomerular Filt Rate > 60; Glucose Fasting 88 mg/dL (60-99); HDL Cholesterol 39 mg/dL (>40); LDL Cholesterol Calculated 91 mg/dL (<100); Potassium 3.8 mmol/L (3.3-5.1); Sodium 140 mmol/L (135-145); Total Protein 8.1 g/dL (6.5-8.0); Triglycerides 209 mg/dL (<150)
== END 2024-06-06 11:15 | disposition home or self-care (01) ==
LOC: HO.WFDLDS 11:14
PROVIDERS: Visit Provider Family Medicine
DX: Z00.00 Encounter for general adult medical examination without abnormal findings (principal); E78.2 Mixed hyperlipidemia
CPT/HCPCS: 36415; 80053; 80061

== ENCOUNTER 2024-06-10 11:21 | Outpatient (AMB) | payer OTHER, SELFPAY ==
--- NOTE | 2024-06-10 11:56 | MHC.PC.OV ---
Vital Signs 06/10/24 11:59 Height 6 ft 2 in Weight 192 lb 6 oz BMI 24.7 BP 120/80 Blood Pressure Location Lt brachial Position Sitting Respiration 10 L Pulse 80 Pulse Source Pulse Oximeter Temp 99.3 F Temp Source Oral Pulse Oximetry (%) 99 Oxygen Delivery Method Room Air Intake Visit Reasons: F/U HLD Intake Note: patient is scheduled for follow up lab review Communication Engineer Required: No Allergies penicillin G Allergy (Unknown, Verified 06/10/24 11:57) Rash, Swelling Tobacco use date assessed: 04/11/22 HPI F/U HLD HPI Details 33 y/o male presents to /[facility]. Labs drawn 06/06/24. Reviewed labs with pt. Elevated ALT of 60. Triglycerides 209. TC 171. LDL 91. HDL low at 39. He is on rosuvastatin 20mg daily. Blood pressure today 120/80, 80p. He is on lisinopril-HCTZ 10-12.5mg daily. Reports fatigue. He notes he feels like he wakes up refreshed but does note daytime sleepiness in the afternoon. He does note he snores. HPI Comments History of Present Illness Details Documentation assistance for Yfn Barney MD, was provided by Aris Cantrell,? Power Reactor Supervisor on 06/10/2024 at 12:38 PM EST. I, Dr. Barney, have read, observed, and verified documentation. ?? [facility] Medical History Hypertension Social History Housing: House Patient Tobacco Use Status: Never used Tobacco e-Cigarette/Vaping Use: Never Used Second Hand Smoke Exposure: No service: No Current occupational status: employed Current occupational exposures/hazards: No Cognitive needs: No Hearing needs: No Vision needs: No Questionnaire PHQ-9 Over the last 2 weeks, how often have you been bothered by any of the following problems? 1. Little interest or pleasure in doing things: not at all 2. Feeling down, depressed, or hopeless: not at all 3. Trouble falling or staying asleep, or sleeping too much: not at all 4. Feeling tired or having little energy: several days 5. Poor appetite or overeating: not at all 6. Feeling bad about yourself - or that you are a failure or have let yourself or your family down: not at all 7. Trouble concentrating on things, such as reading the newspaper or watching television: several days 8. Moving or speaking so slowly that other people could have noticed. Or the opposite - being so fidgety or restless that you have been moving around a lot more than usual: not at all 9. Thoughts that you would be better off or of hurting yourself in some way: not at all Total score: 2 Depression Screening Interpretation: Negative Depression Screening Done: Yes 76196 - PHQ-9 Billing: Yes Source: Developed by Drs. Erick Castro, Romana Manning, Ray Mendez and colleagues, with an educational kiera from [employer]. Thrive Questionnaire Date Thrive assessed: 06/10/24 I am a: Patient What is your living situation today?: I have a steady place to live Within the past 12 months, did the food you bought not last and you didn't have the money to get more?: Never true Within the past 12 months, did you worry whether your food would run out before you got money to buy more?: Never true Do you have trouble paying for medicines?: No Do you have trouble getting transportation to medical appointments?: No Do you have trouble paying your heating and electricity bill?: No Do you have trouble taking care of your child, family member or friend?: No Do you have trouble with day-to-day activities such as bathing, preparing meals, shopping, managing finances, etc.?: No Are you currently unemployed and looking for a job?: No Are you interested in more education?: No Please select the resources that you would like help with: None Currently or been in a relationship where the following occur: No concerns reported THRIVE Score: 0 AUDIT C Alcohol Use Questionnaire (AUDIT-C) 1. How often do you have a drink containing alcohol?: 2-3 times a week 2. How many drinks containing alcohol do you have on a typical day when you are drinking?: 3 or 4 3. How often do you have six or more drinks on one occasion?: Less than monthly Total Score: 5 Score Reviewed/Action Taken: Yes NELLIE-7 AMB Questionnaire NELLIE-7 Date NELLIE - 7 assessed: 06/10/24 Feeling nervous, anxious, or on edge: 0 = Not at all Not being able to stop or control worryin = Not at all Worrying too much about different things: 1 = Several days Trouble relaxin = Several days Being so restless that it is hard to sit still: 0 = Not at all Becoming easily annoyed or irritable: 1 = Several days Feeling afraid as if something awful might happen: 0 = Not at all Total NELLIE-7 score (0-4 normal; 5-9 mild; 10-14 moderate; 15-21 severe): 3 Source: Developed by Drs. Erick Castro, Romana Manning, Ray Mendez and colleagues, with an educational kiera from [employer]. NELLIE-7 Assessment Billing NELLIE-7 Assessment Tool: NELLIE-7 Assessment 73509 Review of Systems Const Denies chills, Denies fatigue, Denies fever(s), Denies headache(s) and Denies weakness ENT Denies dizziness and Denies headache(s) Card Denies dyspnea Resp Denies cough, Denies dyspnea, Denies wheezing and Denies other (shortness of breath) Musc Denies numbness and Denies tingling Neuro Denies dizziness, Denies headache(s), Denies numbness, Denies tingling and Denies weakness Psych Denies anxiety and Denies depression Endo Denies fatigue Aller/Immun Denies wheezing Physical exam (Primary Care) Vital Signs: Last Vital Signs Temp 99.3 F 06/10/24 11:59 Pulse 80 06/10/24 11:59 Resp 10 L 06/10/24 11:59 BP 120/80 06/10/24 11:59 Pulse Ox 99 06/10/24 11:59 Oxygen Delivery Method Room Air 06/10/24 11:59 BMI result Body Mass Index 24.7 Tobacco/Smoking Status: Tobacco use Status Tobacco use date assessed 04/11/22 06/10/24 12:02 Patient Tobacco Use Status Never used Tobacco 06/10/24 12:02 e-Cigarette/Vaping Use Never Used 06/10/24 12:02 PHQ-9: PHQ-9 Score PHQ-9: Total score 2 06/10/24 12:36 Depression Screening Interpretation: Negative Thrive Assessment: Date of Thrive Assessment Date Thrive assessed 06/10/24 06/10/24 12:02 Currently or been in a relationship where the following occur: No concerns reported Const General: well developed; No acute distress Nutritional Appearance: well nourished Orientation/consciousness: patient oriented x3 HENMT Head: Yes normocephalic and Yes atraumatic Eyes General: appearance normal, both eyes and all related structures Pupils: Equal, round and reactive pupils present EOM: EOMs intact bilaterally Resp Effort & Inspection: normal respiratory effort Auscultation: clear to auscultation bilaterally Cardio Rate: regular rate Rhythm: regular rhythm Heart sounds: S1 normal heart sound present, S2 normal heart sound present, no gallops, no murmurs and no rubs Neuro General: patient oriented x3 and gait normal Cranial nerves: Yes Equal, round and reactive pupils present Psych Affect: normal affect Coding Level of Care Code Est Pt Level 4 (99621) Diagnoses Essential hypertension I10 Mixed hyperlipidemia E78.2 Elevated ALT measurement R74.01 Hypersomnia G47.10 Additional Codes NELLIE-7 Assessment Billing - NELLIE-7 Assessment Tool: NELLIE-7 Assessment 50891 ([id number]) PHQ-9 - 39051 - PHQ-9 Billing: Yes ([id number]) Assessment & Plan Assessment & Plan (1) Essential hypertension: Code(s): I10 - Essential (primary) hypertension Category: Medical Plan: Blood?pressure?now?controlled?on?new?regimen.. Goal?is?less?than?140/90 Continue?current?medication?regimen (2) Mixed hyperlipidemia: Code(s): E78.2 - Mixed hyperlipidemia Category: Medical Plan: Triglycerides?significantly?improved?though?still?elevated LDL?cholesterol?now?at?goal?of?less?than?100 HDL?cholesterol?slightly?below?goal?of?greater?than?40?and?I?encouraged?exercise Continue?rosuvastatin?as?prescribed (3) Elevated ALT measurement: Code(s): R74.01 - Elevation of levels of liver transaminase levels Category: Medical Plan: Stable?though?elevated.??No?significant?change He?has?had?an?ultrasound?in?past?showing?hepatic?steatosis?without masses (4) Hypersomnia: Code(s): G47.10 - Hypersomnia, unspecified Category: Medical Plan: Patient?gets?sleepiness?and?fatigue?at?the?same?time?every?day. Referred?to?Sleep?Medicine
[2024-06-10 11:59] VITALS: BP 120/80; PULSE 80; RESP 10; TEMP 37.4; O2SAT 99; BMI 24.7
== END 2024-06-10 12:41 | disposition home or self-care (01) ==
LOC: HO.HMCFM 11:22
PROVIDERS: PCP Family Medicine; Visit Provider Family Medicine
DX: I10 Essential (primary) hypertension (principal); E78.2 Mixed hyperlipidemia; R74.01 Elevation of levels of liver transaminase levels; G47.10 Hypersomnia, unspecified

== ENCOUNTER → 2024-06-10 11:21 | Outpatient (BNVA) | payer OTHER, SELFPAY | PROVIDERS: PCP Family Medicine; Visit Provider Family Medicine | DX: I10 Essential (primary) hypertension (principal); E78.2 Mixed hyperlipidemia; R74.01 Elevation of levels of liver transaminase levels; G47.10 Hypersomnia, unspecified | CPT/HCPCS: 96127 ==

== ENCOUNTER 2024-07-16 12:35 | Outpatient (AMB) | payer OTHER, SELFPAY ==
[2024-07-16 12:54] VITALS: BP 120/78; PULSE 95; TEMP 37.1; O2SAT 97
--- NOTE | 2024-07-16 12:54 | AM.OFFWIN_ITS ---
Intake Vital Signs 07/16/24 12:54 Weight 196 lb BP 120/78 Blood Pressure Location Rt brachial Position Sitting Pulse 95 Pulse Source Pulse Oximeter Temp 98.8 F Temp Source Oral Pulse Oximetry (%) 97 Oxygen Delivery Method Room Air Intake Visit Reasons: EP-fever, chills Intake Note: Patient here for body aches and fevers that has been present for about 4 days. Patient Tobacco Use Status: Never used Tobacco Allergies penicillin G Allergy (Unknown, Verified 07/16/24 13:00) Rash, Swelling Do you need a note to return to daycare/school/sports/work: No HPI HPI Comments History of Present Illness Details History - The patient is a 34-year-old male pres enting with persistent fever and ear discomfort. - The fever has been ongoing for four da ys, Tmax 105F,, but it reduces temporarily with the administration of Tylenol. - The patient reports associated symptom s including headaches, fatigue, and generalized body aches; however, there are no accompanying respiratory symptoms such as cough or congestion. - No shortness of breath or wheezing has been noted. - Night sweats were experienced during e pisodes of fever. - The patient has an extensive history o f ear infections, with a previous intervention involving tubes in childhood, but no recent ear infections treated with Amoxicillin due to an allergic reaction. Doxycycline has been used for previous ear infections with effective results. Physical Exam General: Cooperative, healthy appearing, comfortable and no acute distress Orientation/consciousness: Patient oriented x3 Limitations: No limitations Head: Normal to inspection Ears: Hearing grossly normal bilaterally, external ears normal, bilat TMs with erythema, bulging and purulence Nose: Normal external nose present, Normal nares present and No nasal discharge present Face and sinus: Normal facial exam and Yes sinuses nontender Mouth: Normal oral and palatal mucosa present and moist mucous membranes Throat: Yes tonsils normal, Yes uvula midline. Posterior oropharynx erythema Eyes: Appearance normal, both eyes and all related structures Neck: Normal visual inspection Respiratory: Normal respiratory effort, able to speak in complete sentences, Actively coughing, no respiratory distress, not tachypneic, no tripod positioning and no use of accessory muscles Cardiovascular: Regular rate and rhythm. Normal S1 and S2 Skin: No rashes or lesions noted Neuro: Patient oriented x3 Extremities: Normal to inspection and Yes no clubbing, cyanosis or edema [facility] Medical History Hypertension Social History Housing: House Patient Tobacco Use Status: Never used Tobacco e-Cigarette/Vaping Use: Never Used Second Hand Smoke Exposure: No service: No Current occupational status: employed Current occupational exposures/hazards: No Cognitive needs: No Hearing needs: No Vision needs: No Review of Systems Const All systems reviewed & are unremarkable except as noted in HPI and below Physical Exam Vital Signs: Last Vital Signs Temp 98.8 F 07/16/24 12:54 Pulse 110 H 07/16/24 12:54 BP 120/78 07/16/24 12:54 Pulse Ox 97 07/16/24 12:54 Oxygen Delivery Method Room Air 07/16/24 12:54 Assessment & Plan Assessment & Plan (1) Otitis media: Code(s): H66.90 - Otitis media, unspecified, unspecified ear Qualifiers: Otitis media type: suppurative Chronicity: acute Laterality: bilateral Recurrence: non-recurrent Spontaneous tympanic membrane rupture: without spontaneous rupture Qualified Code(s): H66.003 - Acute suppurative otitis media without spontaneous rupture of ear drum, bilateral Plan: The patient exhibits signs chiefly indicative of bilateral Acute Otitis Media, linked to the fever. Treatment with Doxycycline, given the patient's Amoxicillin allergy, has been initiated. Doxycycline is prescribed for a week, with instructions to avoid sun exposure due to the risk of photosensitivity. A swab has been conducted to exclude other viral causes. The application of Flonase to alleviate nasal symptoms was discussed, with a caution to apply only to the non- cauterized side to avoid aggravating the condition. Chest X-ray has been considered unnecessary unless symptoms do not resolve. An order for the patient's medication has been dispatched to the local pharmacy, and I will inform the patient of the swab results within 24 hours for further management decisions. Patient was informed and verbally consented to the use of an ambient scribe for clinic note documentation during this visit Orders: Orders XR chest 2V Today R05.9 - Cough, unspecified SARS-CoV2/FLU/RSV Today R09.89 - Other specified symptoms and signs involving the circulatory and respiratory systems Medications: New doxycycline hyclate 100 mg PO BID 14 tabs 0RF Coding Level of Care Code Est Pt Level 3 (56576) Diagnoses Non-recurrent acute suppurative otitis media of both ears without spontaneous rupture of tympanic membranes H66.003 Otitis media type: suppurative Chronicity: acute Laterality: bilateral Recurrence: non-recurrent Spontaneous tympanic membrane rupture: without spontaneous rupture
--- OUTSIDE RECORDS SUMMARY | 2024-07-16 14:27 | XMS_ITS | Data Portability ---
Author Organization [place] - [facility], Allergy Address [address] [address] Care Team Providers Care Senior Manager Asset Protection Name Role Phone FEROZ, CARMEN Primary Care Provider Assessment Encounter Date Assessment Date Assessment LastModified by Organization Details LastModified Time 07/08/2024 07/08/2024 Nasal examination today identified a prominent bleeding source on the left anterior septum. This site was cauterized with silver nitrate. Recommend local wound care with saline nasal spray 4-6 times daily, K-Y jelly at night, Afrin with episodes of bleeding. Follow up in 3-4 weeks. [email or web address] Not available 07/08/2024 12:50:39 Plan of Treatment Reminders Order Date Submit Date Provider Last Modified By Organization Details Last Modified Time Details Appointments Establish ed 15 2024 09:45A M LAWANDA POLLACK PA-C Not available Not available Not available Lab None recorded. Referral None recorded. Procedures None recorded. Surgeries None recorded. Imaging None recorded. Medication Orders None recorded. Patient TargetsNo targets recorded. Patient InstructionsNo instructions recorded. Reason for Referral None Reported. Problems Name Problem SNOMED Code Status Onset Date Resolution Date Notes Provider Name and Address Organization Details Recorded Time Bleeding from nose 838335682 Active 2014 [facility] ; Location: left Note : Date Diagnosed : 11/04/2014 8:53 AM (R04.0) Not Available [facility] 4 02:36:14 [facility] Active 2014 [facility] ; Location: left Note : Date Diagnosed : 11/04/2014 8:53 AM (784.7) Not Available [facility] 4 02:36:04 Hypertrop hy of tonsils 10453830 Active 2022 Hypertrop hy of tonsils; Note: Date Diagnosed : 08/10/2022 10:10 AM (J35.1) Not Available [facility] 4 02:36:17 Spontaneo us rupture of left tympanic membrane co-occurr ent and due to acute suppurati ve otitis media [id number] 69451 Active 2023 Acute suppurati ve otitis media with spontaneo us rupture of ear drum, left ear; Note: Date Diagnosed : 06/09/2023 12:02 PM (H66.012) Not Available [facility] 4 02:36:08 Problem Notes None recorded. Procedures Surgical History Date Name Laterality Status Provider Name and Address Organization Details Recorded Time 5 [facility] Simple Nasal Cautery Left completed LAWANDA POLLACK PA-C [address] [place] [address], [id number], [place] - [facility] 07/08/2024 12:50:16 Imaging Results None recorded. Procedure Notes None recorded. Medical Equipment None Reported. Allergies Allergen ID Allergen Name Allergen Category Reaction Reaction Severity Criticality Documentation Date Start Date Code Code System Note Provider Name and Address Organization Details Recorded Time 31520 penicilli n V potassium medicatio n other Not available Not available 08/01/2023 5 RxNorm React ion: unkno wn, unspe cifie d;; Not Available [facility] 4 00:56:05 Medications Name Sig Start Date Stop Date Status Note LastModified by Organization Details LastModified Time doxycycli ne hyclate 100 mg capsule TAKE 1 CAPSULE BY MOUTH TWICE A DAY FOR 7 DAYS 07/08 completed Not Available Not Available Not Available ofloxacin 0.3 % ear drops Apply 5 drop into both ears twice a day 2023 active Medicati on ID: [id number] D uration Value: 7 Brand Name: ofloxaci n Send Method: E-Prescr ibed Sub s Allowed: subs OK Speci al Instruct ion: to left ear Medi cationGe nericNam e: ofloxaci n Not Available Not Available Not Available benzonata te 100 mg capsule TAKE 1 CAPSULE BY MOUTH 3 TIMES A DAY NEEDED FOR COUGH FOR 10 DAYS 07/08 completed Not Available Not Available Not Available gemfibroz il 600 mg tablet active Medicati on ID: [id number] B rand Name: marielfibro zil Send Method: E-Prescr ibed Sub s Allowed: subs OK Medic ationGen ericName : marielfibro zil Not Available Not Available Not Available lisinopri l 10 mg tablet TAKE 1 TABLET BY MOUTH EVERY DAY 07/08 completed Not Available Not Available Not Available polymyxin B sulfate 10,000 unit-trim ethoprim 1 mg/mL eye drops INSTILL 1 DROP INTO THE EYE 4 TIMES A DAY FOR 5 DAYS WHILE AWAKE DO NOT EXCEED 6 DOSES IN 24 HOURS 07/08 completed Not Available Not Available Not Available omeprazol e 20 mg capsule,d elayed release TAKE 1 CAPSULE BY MOUTH EVERY MORNING FOR 90 DAYS active Not Available Not Available No t Available lisinopri l 5 mg tablet 09/10 completed Medicati on ID: [id number] D uration Value: 30 Reason: () Brand Name: lisinopr il Send Method: E-Prescr ibed Sub s Allowed: subs OK Speci al Instruct ion: TAKE 1 TABLET BY MOUTH EVERY DAY Medi cationGe nericNam e: lisinopr il Not Available Not Available Not Available lisinopri l 10 mg-hydroc hlorothia zide 12.5 mg tablet TAKE 1 TABLET BY MOUTH EVERY DAY active Not Available Not Available No t Available albuterol sulfate HFA 90 mcg/actua tion aerosol inhaler INHALE 2 PUFFS BY MOUTH EVERY 4 TO 6 HOURS NEEDED FOR WHEEZE FOR SHORTNES S OF BREATH active Not Available Not Available No t Available rosuvasta tin 20 mg tablet TAKE 1 TABLET BY MOUTH DAILY FOR 30 DAYS active Not Available Not Available No t Available Vitals Date Recorded Body height Body mass index (BMI) Body weight Provider Name and Address Organization Details Last Updated DateTime 07/08/2024 187.96 cm 24.4 kg/m2 39295.55 g BEBETO FELTON [place] - [facility] 07/08/2024 11:24:22 Social History None recorded. Functional Status None recorded. Mental Status None recorded. Family History Nothing Reported. Medical History No medical history recorded. Past Encounters Encounter ID Performer Location Encounter Start Date Encounter Closed Date Diagnosis/Indication Diagnosis SNOMED-CT Code Diagnosis ICD10 Code Diagnosis Note [id number] MARYANN WEISS MD [facility] [address] [place] [address] 07/08/2024 11:16:15 07/08/2024 11:40:25 Bleeding from nose 720618604 R04.0 Health Concerns Section Related Observation LastModified by Organization Detai ls LastModified Time None Recorded Concern Status LastModified by Organization Details LastModified Time None Recorded Advance Directives Directive None Recorded Payers Encounter Date Sequence Insurance Name Policy Number Policy Trujillo Covered Member ID Trujillo Member ID Guarantor Name 07/08/2024 1 [facility] [place] Aram Franco Mor [id number] Aram Juares Notes Date Note Type Note Provider Name and Address Organization Details Recorded Time 07/08/2024 text/html 34 year old male presents reporting daily left sided epistaxis for the past month. His most recent nosebleed was this morning. They are unprovoked. Sometimes he can stop the bleeding within a couple minutes sometimes it takes 5-10 minutes of direct pressure to stop. He has required nasal cautery in the past. The change of season seems to be a trigger. He does not regularly use any nasal sprays. He is not on any anticoagulants. His hypertension is reportedly well controlled on Lisinopril. MARYANN WILCOX MD [address] [facility],[place] [address], [place], [address], [facility] - [facility] 07/08/2024 16:23:15
--- OUTSIDE RECORDS SUMMARY | 2024-07-16 14:27 | XMS_ITS | Clinical Summary ---
Author Organization [facility] Address [address] [place] [address] Phone Care Team Providers Care Vending Machine Operator Name Role Phone Unavailable Primary Care Provider Unavailabl e Social History Tobacco Use Types Packs/Day Years Used Date Smoking Tobacco: Never Assessed Sex and Gender Information Value Date Recorded Sex Assigned at Not on file Legal Sex Male 6:10 PM EDT Gender Identity Not on file Sexual Orientation Not on file Plan of Treatment Health Maintenance Due Date Last Done Comments MMR Vaccines (1 of 1 - Stand luci series) 1989 Varicella Vaccines (1 of 2 - 13+ 2-dose series) 2001 DTaP,Tdap,and Td Vaccines (1 - Tdap) 2006 Hepatitis B Vaccines (1 of 3 - 19+ 3-dose series) 07/01/2007 Influenza Vaccines (#1) 2023 COVID-19 Vaccine (2023-2 5 season) 2023 HIB Vaccines Aged Out No longer eligi ble based on patient's age to complete this topic HPV Vaccines Aged Out No longer eligi ble based on patient's age to complete this topic Hepatitis A Vaccines Aged Out No long er eligible based on patient's age to complete this topic IPV Vaccines Aged Out No longer eligi ble based on patient's age to complete this topic Men B Vaccine Aged Out No longer elig ible based on patient's age to complete this topic Meningococcal Vaccine Aged Out No amanda danny eligible based on patient's age to complete this topic Pneumococcal Vaccine Aged Out No long er eligible based on patient's age to complete this topic
== END 2024-07-16 13:41 | disposition home or self-care (01) ==
PROVIDERS: PCP Family Medicine; Visit Provider Physician Assistant
DX: H66.003 Acute suppurative otitis media without spontaneous rupture of ear drum, bilateral (principal)

== ENCOUNTER 2024-07-16 12:35 | Outpatient (REF) | payer OTHER, SELFPAY ==
--- OUTSIDE RECORDS SUMMARY | 2024-07-16 15:24 | XMS_ITS | Clinical Summary ---
Author Organization [facility] Address [address] [place] [phone] Phone Care Team Providers Care Set And Exhibit Designer Name Role Phone Unavailable Primary Care Provider [...]
[2024-07-16 16:58] LABS: Influenza A PCR NEGATIVE (Negative); Influenza B PCR NEGATIVE (Negative); Resp Syncy Virus RNA Qual PCR NEGATIVE (Negative); SARS COV2 PCR INHOUSE NEGATIVE (Negative)
== END 2024-07-16 12:36 | disposition home or self-care (01) ==
LOC: HO.LNP 12:35
PROVIDERS: PCP Family Medicine; Visit Provider Physician Assistant
DX: H66.003 Acute suppurative otitis media without spontaneous rupture of ear drum, bilateral (principal); R09.89 Other specified symptoms and signs involving the circulatory and respiratory systems; R05.9 Cough, unspecified; R50.9 Fever, unspecified
CPT/HCPCS: 0241U

== ENCOUNTER 2024-07-25 12:02 | Outpatient (AMB) | payer OTHER, SELFPAY ==
--- OUTSIDE RECORDS SUMMARY | 2024-07-25 13:29 | XMS_ITS | Clinical Summary ---
Author Organization [facility] Address [address] [place] [phone] Phone Care Team Providers Care Manager Hospice Name Role Phone Unavailable Primary Care Provider [...]
--- OUTSIDE RECORDS SUMMARY | 2024-07-25 13:29 | XMS_ITS | Data Portability ---
Author Organization [place] - [facility], Allergy Address [address] [address] Care Team Providers Care Paying Teller Name Role Phone FEROZ, CARMEN Primary Care [...] Organization Details Recorded Time Bleeding from nose 107769000 Active 2014 [facility] ; Location: left Note : Date Diagnosed : 11/04/2014 8:53 AM (R04.0) Not Available [facility] 4 02:36:14 [facility] Active 2014 [facility] ; Location: left Note : Date Diagnosed : 11/04/2014 8:53 AM (784.7) Not Available [facility] 4 02:36:04 Hypertrop hy of tonsils 66995021 Active 2022 Hypertrop hy of tonsils; Note: Date Diagnosed : 08/10/2022 10:10 AM (J35.1) Not Available [facility] 4 02:36:17 Spontaneo us rupture of left tympanic membrane co-occurr ent and due to acute suppurati ve otitis media 28791102068 48444 Active 2023 Acute suppurati ve otitis media with spontaneo us rupture of ear drum, left ear; Note: Date Diagnosed : 06/09/2023 12:02 PM (H66.012) Not Available [facility] 4 02:36:08 Problem Notes None recorded. Procedures Surgical History Date Name Laterality Status Provider Name and Address Organization Details Recorded Time 5 [facility] Simple Nasal Cautery Left completed LAWANDA POLLACK PA-C [address] [place] [address], [phone], [place] - [facility] 07/08/2024 12:50:16 Imaging Results None recorded. Procedure Notes None recorded. Medical Equipment None Reported. Allergies Allergen ID Allergen Name Allergen Category Reaction Reaction Severity Criticality Documentation Date Start Date Code Code System Note Provider Name and Address Organization Details Recorded Time 38718 penicilli n V potassium medicatio n other Not available Not available 08/01/2023 5 RxNorm React ion: unkno wn, unspe cifie d;; Not Available [facility] 4 00:56:05 Medications Name Sig Start Date Stop Date Status Note LastModified by Organization Details LastModified Time doxycycli ne hyclate 100 mg capsule TAKE 1 CAPSULE BY MOUTH TWICE A DAY FOR 7 DAYS 07/08 completed Not Available Not Available Not Available ofloxacin 0.3 % ear drops Apply 5 drop into both ears twice a day 2023 active Medicati on ID: [id number] D uration Value: 7 Brand Name: ofloxaci [...] 600 mg tablet active Medicati on ID: [id number] B rand Name: marielfibro zil Send Method: [...] mg tablet 09/10 completed Medicati on ID: [id number] D uration Value: 30 Reason: () Brand [...] Updated DateTime 07/08/2024 187.96 cm 24.4 kg/m2 57450.55 g BEBETO FELTON [place] - [facility] 07/08/2024 11:24:22 Social History None recorded. Functional Status None recorded. Mental Status None recorded. Family History Nothing Reported. Medical History No medical history recorded. Past Encounters Encounter ID Performer Location Encounter Start Date Encounter Closed Date Diagnosis/Indication Diagnosis SNOMED-CT Code Diagnosis ICD10 Code Diagnosis Note [id number] LAWANDA POLLACK PA-C [facility] [address] [place] [address] 07/08/2024 11:16:15 07/08/2024 11:40:25 Bleeding from nose [id number] R04.0 Health Concerns Section Related Observation LastModified by Organization Detai ls LastModified Time None Recorded Concern Status LastModified by Organization Details LastModified Time None Recorded Advance Directives Directive None Recorded Payers Insurance Date Sequence Insurance Name Policy Number Policy Trujillo Covered Member ID Trujillo Member ID Guarantor Name 07/08/2024 1 [id number] Aram Franco Mor [id number] Aram Juares Notes Date Note Type [...] controlled on Lisinopril. MARYANN WILCOX MD [address] [facility] [address], [place], [address], [facility] - [facility] 07/08/2024 16:23:15
--- NOTE | 2024-07-25 13:36 | MHC.OFFWIV ---
Intake Vital Signs 07/25/24 13:37 BP 130/80 Blood Pressure Location Lt brachial Position Sitting Pulse 86 Pulse Source Pulse Oximeter Temp 98.4 F Temp Source Oral Pulse Oximetry (%) 99 Oxygen Delivery Method Room Air Intake Visit Reasons: EP-?step throat Intake Note: Patient here for sore throat that started Monday. Patient Tobacco Use Status: Never used Tobacco Allergies penicillin G Allergy (Unknown, Verified 07/25/24 13:45) Rash, Swelling Medication List - Last Reconciled 07/25/24 by Aileen Anguiano, [facility]- lisinopril-hydrochlorothiazide 10-12.5 mg 1 tab PO DAILY 90 days omeprazole 20 mg PO QAM 90 days rosuvastatin 20 mg PO DAILY 30 days Do you need a note to return to daycare/school/sports/work: No HPI HPI Comments History of Present Illness Details - The patient is a 34-year-old male presenting with a sore throat and white patches that began between Monday and Monday. He reports soreness more noticeable during swallowing, but does not have accompanying fever, chills, or persistent cough. Only occasional cough is noted. - Recently finished an antibiotic regimen with doxycycline for ear infections detected on examination, accompanied only by fever, as the patient was asymptomatic initially. - There are no reports of strep throat symptoms at the time of ear infection. A penicillin allergy is known, characterized by rash and swelling. Physical Exam General: Well developed, well nourished, in no acute distress. Appears stated age. Head: Normocephalic, atraumatic. Eyes: Pupils are equal, round and reactive to light and accommodation. Conjunctivae are clear. TM intact, + congestion on R, clear on L Pharynx with exudative pharynitis, uvula midline, managing sectrions Pulses: Peripheral pulses are equal and palpable bilaterally. Results Rapid strep negative Discussion Notes I discussed with the patient the likely diagnosis of streptococcal pharyngitis in light of his symptoms and the lack of prior strep coverage by doxycycline. We conversed about his penicillin allergy, indicating that while penicillin would be the most effective, alternatives like azithromycin (Zithromax) and cephalosporins could be used. I explained that some cephalosporins could cause cross-sensitivity reactions, though these cases are rare. We agreed upon attempting cefadroxil, barring allergy manifestations. The patient should monitor for rash or swelling, at which point taking Benadryl and contacting our office will be necessary. Hygiene practices, including replacing toiletries and washing bed linens in hot water after 24 hours of antibiotic initiation, were recommended to prevent reinfection. Assessment and Plan 1. Streptococcal Pharyngitis - despite negative swab today, clinincally on exam he has strep. The patient is diagnosed with streptococcal pharyngitis. Given the penicillin allergy, cefuroxime has been prescribed. Caution regarding cross-sensitivity to cephalosporins was discussed. The patient is instructed to report any allergic reactions promptly. 2. Penicillin Allergy Recognizing a reported allergy to penicillin, an alternative antibiotic treatment is provided. The patient was made aware of potential cephalosporin cross-reactions, stressing that such incidents are uncommon. Patient Instructions - Start ABT as directed, with food to minimize stomach upset. - Replace your toothbrush and thoroughly wash bedding in hot water after 24 hours of antibiotic use. - Contact us if a rash or swelling develops. - Follow up on referrals for lung imaging and PFT. - Maintain hydration and adequate rest. [facility] Medical History Hypertension Social History Housing: House Patient Tobacco Use Status: Never used Tobacco e-Cigarette/Vaping Use: Never Used Second Hand Smoke Exposure: No service: No Current occupational status: employed Current occupational exposures/hazards: No Cognitive needs: No Hearing needs: No Vision needs: No Physical Exam Vital Signs: Last Vital Signs Temp 98.4 F 07/25/24 13:37 Pulse 86 07/25/24 13:37 BP 130/80 07/25/24 13:37 Pulse Ox 99 07/25/24 13:37 Oxygen Delivery Method Room Air 07/25/24 13:37 Results AMB Rapid Strep AMB Rapid Strep Negative Last Edit by JEFF Wang on 07/25/24 13:57 Assessment & Plan Assessment & Plan (1) Strep pharyngitis: Code(s): J02.0 - Streptococcal pharyngitis Plan . Medications: New cefadroxil i am aware of PCN allergy; ok to fill. 500 mg PO BID 14 caps 0RF Coding Level of Care Code Est Pt Level 3 (91941) Diagnoses Strep pharyngitis J02.0
[2024-07-25 13:37] VITALS: BP 130/80; PULSE 86; TEMP 36.9; O2SAT 99
== END 2024-07-25 14:00 | disposition home or self-care (01) ==
PROVIDERS: PCP Family Medicine; Visit Provider Nurse Practitioner Family
DX: J02.0 Streptococcal pharyngitis (principal); Z13.9 Encounter for screening, unspecified

== ENCOUNTER → 2024-07-25 12:02 | Outpatient (BNVA) | payer OTHER, SELFPAY | PROVIDERS: PCP Family Medicine; Visit Provider Nurse Practitioner Family | DX: J02.0 Streptococcal pharyngitis (principal) | CPT/HCPCS: 87880 ==

== ENCOUNTER 2024-08-01 10:17 | Outpatient (AMB) | payer OTHER, SELFPAY ==
--- NOTE | 2024-08-01 10:31 | MHC.OFFWIV ---
Intake Vital Signs 08/01/24 10:34 Weight 196 lb BP 130/88 Blood Pressure Location Rt brachial Position Sitting Pulse 82 Pulse Source Pulse Oximeter Temp 98.2 F Temp Source Oral Pulse Oximetry (%) 98 Oxygen Delivery Method Room Air Intake Visit Reasons: EP Strep still? Finished ABX, sore throat Intake Note: Patient here for sore throat that has been present for about 14 days now and has been put on several different antibiotics and completed all courses. Patient Tobacco Use Status: Never used Tobacco Allergies penicillin G Allergy (Unknown, Verified 07/25/24 13:45) Rash, Swelling HPI HPI Comments History of Present Illness Details History - The patient is a 34-year-old male presenting with persistent ear and throat symptoms. The symptoms began two weeks ago with an initial ear infection diagnosis, treated with Doxycycline starting on 07/16. On 07/25, 7 days of cefpodoxime was RXd for strep pharyngitis. Despite treatment, symptoms like ear clogging and throat scratchiness persisted, alongside the presence of white spots in the throat. Notably, symptoms initially aggravated with the antibiotic course but improved slightly after a week. Denies cough. Initial symptoms also included fever, which resolved 2 weeks ago. Additional treatments included dggh-gkb-zedqwah analgesics such as ibuprofen and acetaminophen, with limited relief. Childhood ENT history involves multiple tube insertions. Recently, the patient reported exacerbated ear discomfort associated with air travel and he travels via air frequently for work so he worried as it exacerbates the pain. Physical Exam General: Cooperative, healthy appearing, comfortable and no acute distress Orientation/consciousness: Patient oriented x3 Limitations: No limitations Head: Normal to inspection Ears: Hearing impaired on the left side, external ears normal and bilat TM's with erythema, loss of landmarks, no fluid or bulging Nose: Normal external nose present, Normal nares present and No nasal discharge present Face and sinus: Normal facial exam and Yes sinuses nontender Mouth: Normal oral and palatal mucosa present and moist mucous membranes Throat: Yes tonsils normal, Yes uvula midline. Posterior oropharynx erythema with exudates Eyes: Appearance normal, both eyes and all related structures Neck: cervical lymphadenopathy Respiratory: Normal respiratory effort, able to speak in complete sentences, no respiratory distress, not tachypneic, no tripod positioning and no use of accessory muscles Skin: No rashes or lesions noted Neuro: Patient oriented x3 Extremities: Normal to inspection and Yes no clubbing, cyanosis or edema [facility] Medical History Hypertension Social History Housing: House Patient Tobacco Use Status: Never used Tobacco e-Cigarette/Vaping Use: Never Used Second Hand Smoke Exposure: No service: No Current occupational status: employed Current occupational exposures/hazards: No Cognitive needs: No Hearing needs: No Vision needs: No Review of Systems Const All systems reviewed & are unremarkable except as noted in HPI and below Physical Exam Vital Signs: Last Vital Signs Temp 98.2 F 08/01/24 10:34 Pulse 82 08/01/24 10:34 BP 130/88 08/01/24 10:34 Pulse Ox 98 08/01/24 10:34 Oxygen Delivery Method Room Air 08/01/24 10:34 Assessment & Plan Assessment & Plan (1) Strep pharyngitis: Code(s): J02.0 - Streptococcal pharyngitis Plan: 3 points Centor Score, rapid strep not done, will treat based on symptoms. In light of the persisting symptoms following antibiotic therapy for Acute Otitis Media and Acute Pharyngitis, I have decided to extend the previous antibiotic regimen with cefadroxil for an additional three days to achieve a full ten-day course. Additionally, I have prescribed a systemic corticosteroid, prednisone, to address inflammation and symptom persistence, with a structured tapering process to avoid potential adverse effects. The plan includes intranasal Flonase to assist with sinus drainage and ear pressure relief, with detailed instructions on effective administration technique. Supportive therapies such as warm salt water gargles and the use of lhiu-ppv-zbxsdnz analgesics and Benadryl at bedtime are recommended to provide symptomatic relief. Monitoring and patient education on the possible side effects of corticosteroids will be [place] in ensuring treatment efficacy and patient safety. Patient was informed and verbally consented to the use of an ambient scribe for clinic note documentation during this visit (2) Otitis media: Code(s): H66.90 - Otitis media, unspecified, unspecified ear Qualifiers: Otitis media type: suppurative Chronicity: acute Laterality: bilateral Recurrence: non-recurrent Spontaneous tympanic membrane rupture: without spontaneous rupture Qualified Code(s): H66.003 - Acute suppurative otitis media without spontaneous rupture of ear drum, bilateral Plan: as above Medications: New cefadroxil 500 mg PO BID 6 caps 0RF prednisone see taper instructions; 40 mg Daily x3 days, 30 mg daily x3 days, 20 mg daily x3 days, 10 mg daily x3 days 10 mg PO DIRECTED 30 tabs 0RF Coding Level of Care Code Est Pt Level 3 (24298) Diagnoses Strep pharyngitis J02.0 Non-recurrent acute suppurative otitis media of both ears without spontaneous rupture of tympanic membranes H66.003 Otitis media type: suppurative Chronicity: acute Laterality: bilateral Recurrence: non-recurrent Spontaneous tympanic membrane rupture: without spontaneous rupture
[2024-08-01 10:34] VITALS: BP 130/88; PULSE 82; TEMP 36.8; O2SAT 98
--- OUTSIDE RECORDS SUMMARY | 2024-08-01 11:17 | XMS_ITS | Clinical Summary ---
Author Organization [facility] Address [address] [place] [id number] Phone Care Team Providers Care Environmental Services Floor Tech Name Role Phone Unavailable Primary Care Provider [...]
--- OUTSIDE RECORDS SUMMARY | 2024-08-01 11:17 | XMS_ITS | Data Portability ---
Author Organization [place] - [facility], Allergy Address [address] [address] Care Team Providers Care Board Mixer Tender Name Role Phone CARMEN REDMAN Primary Care Provider Assessment Encounter Date Assessment [...] PA-C Not available Not available Not available Establish ed 15 2024 02:15P Stephanie POLLACK PA-C Not available Not available Not available Lab None recorded. Referral None recorded. Procedures None recorded. Surgeries None recorded. Imaging None recorded. Medication Orders None recorded. Patient TargetsNo targets recorded. Patient InstructionsNo instructions recorded. Reason for Referral None Reported. Problems Name Problem SNOMED Code Status Onset Date Resolution Date Notes Provider Name and Address Organization Details Recorded Time Bleeding from nose 833128027 Active 2014 [facility] ; Location: left Note : Date Diagnosed : 11/04/2014 8:53 AM (R04.0) Not Available [facility] 02:36:14 [facility] Active 2014 [facility] ; Location: left Note : Date Diagnosed : 11/04/2014 8:53 AM (784.7) Not Available [facility] 4 02:36:04 Hypertrop hy of tonsils 88390467 Active 2022 Hypertrop hy of tonsils; Note: Date Diagnosed : 08/10/2022 10:10 AM (J35.1) Not Available [facility] 4 02:36:17 Spontaneo us rupture of left tympanic membrane co-occurr ent and due to acute suppurati ve otitis media 35793146983 73607 Active 2023 Acute suppurati ve otitis media with spontaneo us rupture of ear drum, left ear; Note: Date Diagnosed : 06/09/2023 12:02 PM (H66.012) Not Available [facility] 4 02:36:08 Problem Notes None recorded. Procedures Surgical History Date Name Laterality Status Provider Name and Address Organization Details Recorded Time 5 [facility] Simple Nasal Cautery Left completed LEFTY JOHNSON-Dung [address] [place] [address],[address], [address], [facility] - [facility] 07/08/2024 12:50:16 Imaging Results None recorded. Procedure Notes None recorded. Medical Equipment None Reported. Allergies Allergen ID Allergen Name Allergen Category Reaction Reaction Severity Criticality Documentation Date Start Date Code Code System Note Provider Name and Address Organization Details Recorded Time 39357 penicilli n V potassium medicatio n other Not available Not available 08/01/2023 45642 5 RxNorm React ion: unkno wn, unspe cifie d;; Not Available [facility] 4 00:56:05 Medications Name Sig Start Date Stop Date Status Note LastModified by Organization Details LastModified Time doxycycli ne hyclate 100 mg capsule TAKE 1 CAPSULE BY MOUTH TWICE A DAY FOR 7 DAYS 07/08 completed Not Available Not Available Not Available ofloxacin 0.3 % ear drops Apply 5 drop into both ears twice a day 2023 active Medicati on ID: [id number] D uration Value: 7 Brand Name: ofloxaci [...] 600 mg tablet active Medicati on ID: [id number] B rand Name: diego celeste Send Method: E-Prescr ibed Sub s Allowed: subs OK Medic ationGen ericName : diego loweryl Not Available Not Available Not Available lisinopri [...] mg tablet 09/10 completed Medicati on ID: [id number] D uration Value: 30 Reason: () Brand [...] Updated DateTime 07/08/2024 187.96 cm 24.4 kg/m2 97251.55 g BEBETO FELTON [place] - [facility] 07/08/2024 11:24:22 Social History None recorded. Functional Status None recorded. Mental Status None recorded. Family History Nothing Reported. Medical History No medical history recorded. Past Encounters Encounter ID Performer Location Encounter Start Date Encounter Closed Date Diagnosis/Indication Diagnosis SNOMED-CT Code Diagnosis ICD10 Code Diagnosis Note [id number] LAWANDA POLLACK PA-C [facility] [address] [address] 07/08/2024 11:16:15 07/08/2024 11:40:25 Bleeding from nose [id number] R04.0 Health Concerns Section Related Observation LastModified by Organization Detai ls LastModified Time None Recorded Concern Status LastModified by Organization Details LastModified Time None Recorded Advance Directives Directive None Recorded Payers Insurance Date Sequence Insurance Name Policy Number Policy Trujillo Covered Member ID Trujillo Member ID Guarantor Name 07/29/2024 1 [facility] Aram Franco Mor [id number] Aram Juares Notes Date Note Type [...] well controlled on Lisinopril. MARYANN WILCOX MD [address] [place] [address], [phone], [facility] - [facility] 07/08/2024 16:23:15
== END 2024-08-01 11:14 | disposition home or self-care (01) ==
PROVIDERS: PCP Family Medicine; Visit Provider Physician Assistant
DX: J02.0 Streptococcal pharyngitis (principal); H66.003 Acute suppurative otitis media without spontaneous rupture of ear drum, bilateral

== ENCOUNTER → 2024-08-01 10:17 | Outpatient (BNVA) | payer OTHER, SELFPAY | PROVIDERS: PCP Family Medicine; Visit Provider Physician Assistant | DX: Z13.89 Encounter for screening for other disorder (principal) ==

== ENCOUNTER 2024-08-05 10:18 | Outpatient (AMB) | payer OTHER, SELFPAY ==
[2024-08-05 10:42] VITALS: BP 134/88; PULSE 114; O2SAT 96; BMI 24.7
--- NOTE | 2024-08-05 10:42 | A.OFFVIS_ITS ---
Vital Signs 08/05/24 10:42 Height 6 ft 2 in Weight 192 lb 6 oz BMI 24.7 BP 134/88 Blood Pressure Location Lt brachial Position Sitting Pulse 114 H Pulse Source Pulse Oximeter Pulse Oximetry (%) 96 Oxygen Delivery Method Room Air Intake Visit Reasons: 4/7LVM+Let INP-Hypersomnia Intake Note: Patient presents IRON ERECTOR hypersomnia. Patient gets sleepiness and fatigue at the same time every day. He notes he feels like he wakes up refreshed but does note daytime sleepiness in the afternoon. He does note he snores. Also trying to get tonsillectomy. Allergies penicillin G Allergy (Unknown, Verified 08/05/24 10:45) Rash, Swelling HPI Comments Details: 34 year old male referred to us for sleep apnea by his pcp. He has non refreshed sleep daily and his complains of him snoring loudly, he goes to bed at 9pm and gets up at 6:30am and has difficulty getting out of bed, never feels like he had a good nights sleep. He had an ENT consult for tonsilectomy recently, however uncertain about removal. He has morning headaches daily, he grinds his teeth. 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 He denies restless legs symptoms. Mood is usually good. Memory is terrible at baseline, he forgets things that are not important to him and or low priority. Difficulty with name recalling. Grandmother has dementia at 90, grandfather had schizophrenia and depression at 90 years old. Maternal grandparents hypertension, grandmother stroke at age 70. Walks daily, needs to exercise more and eat a loom cleaner diet as he eats alot of fast food. [facility] Medical History Hypertension Social History Housing: House Patient Tobacco Use Status: Never used Tobacco e-Cigarette/Vaping Use: Never Used Second Hand Smoke Exposure: No service: No Current occupational status: employed Current occupational exposures/hazards: No Cognitive needs: No Hearing needs: No Vision needs: No Physical Exam Vital Signs: Last Vital Signs Pulse 114 H 08/05/24 10:42 BP 134/88 08/05/24 10:42 Pulse Ox 96 08/05/24 10:42 Oxygen Delivery Method Room Air 08/05/24 10:42 BMI result Body Mass Index 24.7 Const General: cooperative, comfortable and no acute distress Nutritional Appearance: average body habitus Orientation/consciousness: patient oriented x3 HEENT Face and sinus: Yes face symmetric Teeth and gingiva: other ([place] score of 3) Eyes Pupils: Equal, round and reactive pupils present Neck Neck: Yes full ROM Resp Effort & Inspection: normal respiratory effort and able to speak in complete sen tences Neuro General: patient oriented x3 and moves all extremities Cranial nerves: Yes Facial sensation intact/muscles of mastication intact, Yes Equal, round and reactive pupils present, Yes Normal accommodation reflex present, Yes Bilaterally intact EOM present, Yes Normal facial strength present, Yes Midline tongue present, Yes Ability to bilaterally rotate head present and Yes Ability to bilaterally elevate shoulders present Gait exam (Neuro): Normal gait present Motor exam (neuro): 5/5 motor strength present throughout and Normal motor muscle tone present throughout Deep tendon reflexes (DTR's): Right triceps reflex intensity grade: 2+, Left triceps reflex intensity grade: 2+, Rt Biceps (C5, C6): 2+, Left biceps reflex intensity grade: 2+, Right brachioradialis reflex intensity grade: 2+, Left brachioradialis reflex intensity grade: 2+, Right patellar reflex intensity grade: 2+, Left patellar reflex intensity grade: 2+, Right ankle reflex intensity grade: 2+ and Left ankle reflex intensity grade: 2+ Psych Appearance: grossly normal Thought process: Normal thought process present Thought content: Normal thought content present Assessment & Plan Assessment & Plan (1) Fatigue due to sleep pattern disturbance: Code(s): R53.83 - Other fatigue; G47.9 - Sleep disorder, unspecified Category: Medical (2) Strep pharyngitis: Code(s): J02.0 - Streptococcal pharyngitis Category: Medical (3) Loud snoring: Code(s): R06.83 - Snoring Category: Medical Plan HST Snoring and sleep difficulties. Labs to r/o causes of fatigue. ENT referral for tonsilectomy consult. Orders: Orders RT home sleep study Today G47.19 - Other hypersomnia Vitamin D 25-OH Total Today G47.9 - Sleep disorder, unspecified, R53.83 - Other fatigue Vitamin B12 and Folate Today G47.9 - Sleep disorder, unspecified, R53.83 - Other fatigue Methylmalonic Acid Today G47.9 - Sleep disorder, unspecified, R53.83 - Other fatigue Homocysteine Today G47.9 - Sleep disorder, unspecified, R53.83 - Other fatigue Ferritin Today G47.9 - Sleep disorder, unspecified, R53.83 - Other fatigue Referrals Ear/Nose/Throat Referral J02.0 - Streptococcal pharyngitis Patient Instructions: Sleep Hygiene provided: set a scheduled bedtime and wake time to help regulate the circadian rhythm and balance the release of pituitary hormones. Sleep in a dark room, temperatures below 68 degrees, and no devices n bed. Limit caffeinated products 6 hours prior to bed, and limit fluids 2-4 hours prior to bed. Gentle night yoga, diffusing essential oils, and playing soft music can be relaxing. Coding Level of Care Code New Pt Level 4 (43328) Diagnoses Fatigue due to sleep pattern disturbance R53.83; G47.9 Strep pharyngitis J02.0 Loud snoring R06.83 Time Spent (min) 30 Sleep Questionnaire Difficulty falling asleep: No Difficulty staying asleep?: No Number of arousals: 0 Snoring: Yes Witnessed apneas: No Gasping arousals: No Nocturia: No GERD: Yes Vivid dreams: Yes Acting out dreams: No Abnormal behavior in sleep: Yes (1x a quarter) Abnormal movements in sleep: No Morning headaches: Yes Excessive daytime sleepiness: Yes Daytime naps: Yes Restless legs: No Hallucinations: No Sleep paralysis: No Drop attacks: No Sleep Study: No CPAP: No
--- OUTSIDE RECORDS SUMMARY | 2024-08-05 10:54 | XMS_ITS | Clinical Summary ---
Author Organization [facility] Address [address] [place] [id number] Phone Care Team Providers Care Automatic Dispenser Mechanic Name Role Phone Unavailable Primary Care Provider [...]
--- OUTSIDE RECORDS SUMMARY | 2024-08-05 10:54 | XMS_ITS | Data Portability ---
Author Organization [place] - [facility] Address [address] [address] Care Team Providers Care Dressmaker Helper Name Role Phone CARMEN REDMAN Primary Care [...] Organization Details Recorded Time Bleeding from nose 089828204 Active 2014 [facility] ; Location: left Note : Date Diagnosed : 11/04/2014 8:53 AM (R04.0) Not Available [facility] 02:36:14 [facility] Active 2014 [facility] ; Location: left Note : Date Diagnosed : 11/04/2014 8:53 AM (784.7) Not Available [facility] 4 02:36:04 Hypertrop hy of tonsils 99475582 Active 2022 Hypertrop hy of tonsils; Note: Date Diagnosed : 08/10/2022 10:10 AM (J35.1) Not Available [facility] 4 02:36:17 Spontaneo us rupture of left tympanic membrane co-occurr ent and due to acute suppurati ve otitis media [id number] 69229 Active 2023 Acute suppurati ve otitis media with spontaneo us rupture of ear drum, left ear; Note: Date Diagnosed : 06/09/2023 12:02 PM (H66.012) Not Available [facility] 4 02:36:08 Problem Notes None recorded. Procedures Surgical History Date Name Laterality Status Provider Name and Address Organization Details Recorded Time 5 [facility] Simple Nasal Cautery Left completed LEFTY JOHNSON-Dung [address] [place] [address],[address], [phone], [facility] - [facility] 07/08/2024 12:50:16 Imaging Results None recorded. Procedure Notes None recorded. Medical Equipment None Reported. Allergies Allergen ID Allergen Name Allergen Category Reaction Reaction Severity Criticality Documentation Date Start Date Code Code System Note Provider Name and Address Organization Details Recorded Time 36594 penicilli n V potassium medicatio n other Not available Not available 08/01/2023 10420 5 RxNorm React ion: unkno wn, unspe cifie d;; Not Available [facility] 4 00:56:05 Medications Name Sig Start Date Stop Date Status Note LastModified by Organization Details LastModified Time doxycycli ne hyclate 100 mg capsule TAKE 1 CAPSULE BY MOUTH TWICE A DAY FOR 7 DAYS 07/08 completed Not Available Not Available Not Available ofloxacin 0.3 % ear drops Apply 5 drop into both ears twice a day 2023 active Medicati on ID: [id number] D uration Value: 7 Brand Name: ofloxaci [...] 600 mg tablet active Medicati on ID: [id number] B rand Name: diego celeste Send Method: [...] mg tablet 09/10 completed Medicati on ID: [id number] D uration Value: 30 Reason: () Brand [...] Updated DateTime 07/08/2024 187.96 cm 24.4 kg/m2 26115.55 g BEBETO FELTON [place] - [facility] 07/08/2024 11:24:22 Social History None recorded. Functional Status None recorded. Mental Status None recorded. Family History Nothing Reported. Medical History No medical history recorded. Past Encounters Encounter ID Performer Location Encounter Start Date Encounter Closed Date Diagnosis/Indication Diagnosis SNOMED-CT Code Diagnosis ICD10 Code Diagnosis Note [id number] LAWANDA POLLACK PA-C [facility] [address] [address] 07/08/2024 11:16:15 07/08/2024 11:40:25 Bleeding from nose [id number] R04.0 Health Concerns Section Related Observation LastModified by Organization Detai ls LastModified Time None Recorded Concern Status LastModified by Organization Details LastModified Time None Recorded Advance Directives Directive None Recorded Payers Insurance Date Sequence Insurance Name Policy Number Policy Trujillo Covered Member ID Trujillo Member ID Guarantor Name 07/29/2024 1 [facility] [place] Aram Franco Mor [id number] Aram Juares Notes Date Note Type [...] well controlled on Lisinopril. MARYANN WILCOX MD [address] [place] [address], [phone], [facility] - [facility] 07/08/2024 16:23:15
== END 2024-08-05 11:39 | disposition home or self-care (01) ==
LOC: HO.HSMS 10:19
PROVIDERS: PCP Family Medicine; Visit Provider Physician Assistant Medical
DX: R53.83 Other fatigue (principal); G47.9 Sleep disorder, unspecified; J02.0 Streptococcal pharyngitis; R06.83 Snoring
CPT/HCPCS: 99204

== ENCOUNTER → 2024-08-05 10:18 | Outpatient (BNVA) | payer OTHER, SELFPAY | PROVIDERS: PCP Family Medicine; Visit Provider Physician Assistant Medical ==

== ENCOUNTER 2024-09-25 08:17 | Outpatient (AMB) | payer OTHER, SELFPAY ==
[2024-09-25 08:18] VITALS: BP 148/98; PULSE 86; O2SAT 98; BMI 24.4
--- NOTE | 2024-09-25 08:18 | A.OFFVIS_ITS ---
Vital Signs 09/25/24 08:18 Height 6 ft 2 in Weight 190 lb BMI 24.4 BP 148/98 H Blood Pressure Location Rt brachial Position Sitting Pulse 86 Pulse Source Pulse Oximeter Pulse Oximetry (%) 98 Oxygen Delivery Method Room Air Intake Visit Reasons: Gastroesophageal reflux disease (GERD) Intake Note: New pt consult for ongoing GERD. PCP via [facility]. CC; C.O. having questions regarding his PPI tx. Pt states he has been taking omeprazole since age 19. Only taking PRN which he is OK with. Not affecting his sleep. Triggers ID'd (acidic, not spicy, etc). Manager Managed Care Required: No Accompanied by: Self / Same As Patient Allergies penicillin G Allergy (Unknown, Verified 09/25/24 08:28) Rash, Swelling HPI HPI Gastroesophageal reflux disease (GERD): Details: 34 years old male with past medical history of GERD, transaminitis, hypertension, hyperlipidemia is here today for initial consultation. Patient was sent to us by his PCP. Patient reports that for the past 15 years he has been dealing with acid reflux. Patient admits to have not very healthy diet. 3 times a week he might eat fast food. Takes omeprazole as needed only usually 2 to 3 times a week. Patient reports that acid reflux worse with coffee, red sauce, pizza. Patient denies nausea or vomiting. Never had upper endoscopy done before. No issues with anesthesia in the past. Denies history of sleep apnea. Patient usually drinks every day [facility] Medical History (Updated 09/25/24 @ 13:10 by Whit Sanford, [facility]) GERD (gastroesophageal reflux disease) Hypertension Social History Housing: House Patient Tobacco Use Status: Never used Tobacco e-Cigarette/Vaping Use: Never Used Second Hand Smoke Exposure: No service: No Current occupational status: employed Current occupational exposures/hazards: No Cognitive needs: No Hearing needs: No Vision needs: No Review of Systems Const Denies weight gain and Denies weight loss ENT Reports no additional complaints, Denies dysphagia and Denies odynophagia Card Reports no additional complaints Resp Reports no additional complaints GI Denies abdominal pain, Denies belching, Denies melena, Denies bloating, Denies change in bowel habits, Denies dysphagia, Denies excessive flatus, Denies dyspepsia, Reports heartburn, Denies diarrhea, Denies loose stools, Denies nausea, Denies odynophagia and Denies vomiting Reports no additional complaints Musc Reports no additional complaints Neuro Reports no additional complaints Psych Reports no additional complaints Endo Reports no additional complaints Physical Exam Vital Signs: Last Vital Signs Pulse 86 09/25/24 08:18 BP 148/98 H 09/25/24 08:18 Pulse Ox 98 09/25/24 08:18 Oxygen Delivery Method Room Air 09/25/24 08:18 BMI result Body Mass Index 24.4 Const General: healthy appearing, no acute distress and well developed Nutritional Appearance: well nourished Orientation/consciousness: patient oriented x3 Resp Effort & Inspection: normal respiratory effort, able to speak in complete sentences, no tracheal deviation and symmetric chest movement Auscultation: clear to auscultation bilaterally Cardio Rate: regular rate GI Inspection: Yes normal to inspection and No distended Palpation (GI): Soft to palpation, not firm, nontender and No hepatosplenomegaly present Auscultation: normal bowel sounds General: Yes no CVA tenderness Back/Spine/Pelvis Back: no CVA tenderness Skin General skin exam: elasticity normal, turgor normal and dry skin Neuro General: patient oriented x3 Psych Appearance: grossly normal Mental Status: mental status grossly normal Assessment & Plan Assessment & Plan (1) GERD (gastroesophageal reflux disease): Code(s): K21.9 - Gastro-esophageal reflux disease without esophagitis Category: Medical Qualifiers: Esophagitis presence: esophagitis presence not specified Qualified Code(s): K21.9 - Gastro-esophageal reflux disease without esophagitis (2) Elevated ALT measurement: Code(s): R74.01 - Elevation of levels of liver transaminase levels Category: Medical (3) Transaminitis: Code(s): R74.01 - Elevation of levels of liver transaminase levels Plan Patient was encouraged to avoid dietary triggers. He can continue taking omeprazole daily. Will check transglutaminase and lipase. Will check vitamin- D, B12 and folate. Patient will be sent for upper GI with barium swallow and also for endoscopy. Message sent to surgical schedulers to book procedure for patient. Patient will follow-up in our office after the procedure. He will call us if he will have any GI concerning symptoms. Discussed with patient also low-fat, low-salt, low carb and high-protein diet. Patient is agreeable to current plan of care and verbalizes understanding of instructions. She was given the opportunity to ask questions and all questions answered. Thank you for allowing me to participate in his care Orders: Orders Lipase 09/25/24 R10.9 - Unspecified abdominal pain Transglutaminase IgA 09/25/24 R10.9 - Unspecified abdominal pain Vitamin D 25-OH (D2 and D3) 09/25/24 E55.9 - Vitamin D deficiency, unspecified [place] upper GI w Ba Swallow 09/25/24 K21.9 - Gastro-esophageal reflux disease without esophagitis Vitamin B12 and Folate 09/25/24 R19.7 - Diarrhea, unspecified Coding Level of Care Code New Pt Level 4 (52506) Diagnoses Gastroesophageal reflux disease, unspecified whether esophagitis present K21.9 Esophagitis presence: esophagitis presence not specified Elevated ALT measurement R74.01 Transaminitis R74.01 Time Spent (min) 45 Comment 30 minutes spent with patient and additional 15 minutes spent reviewing his records
--- OUTSIDE RECORDS SUMMARY | 2024-09-25 08:22 | XMS_ITS | Clinical Summary ---
Author Organization [facility] Address [address] [place] [phone] Phone Care Team Providers Care Public Health Specialist Name Role Phone Unavailable Primary Care Provider [...] of 3 - 19+ 3-dose series) 07/01/2007 COVID-19 Vaccine ( - 2023-2 5 season) 2023 Influenza Vaccines (#1) 2024 HIB Vaccines Aged Out No longer eligi [...]
== END 2024-09-25 09:05 | disposition home or self-care (01) ==
LOC: HO.HGI 08:17
PROVIDERS: PCP Family Medicine; Visit Provider Nurse Practitioner Family
DX: K21.9 Gastro-esophageal reflux disease without esophagitis (principal); R74.01 Elevation of levels of liver transaminase levels
CPT/HCPCS: 99204